=== PATIENT | female | born 1950 | race Caucasian/White ===

== ENCOUNTER → 2016-11-18 | Outpatient (CLI) | payer MEDICARE, OTHER ==
[~2016-11-18] MED LIST: CALC600T4 PO; CELE200C PO; MULT-245 PO
[2016-11-18 14:15] LABS: BASO # 0.1 x10^3/uL (0.0-0.2); BASO % 1 % (0-3); EOS % 2 % (0-3); HEMOGLOBIN 14.3 g/dL (12.0-15.5); LYMPH # 2.1 x10^3/uL (1.0-4.8); LYMPH % 33 % (24-48); MEAN CORPUSCULAR HEMOGLOBIN 29 pg (25-35); MEAN CORPUSCULAR HGB CONC 35 g/dL (31-37); MEAN CORPUSCULAR VOLUME 82 fL (79-100); MONO % 8 % (0-9); NEUT % 57 % (31-73); PLATELET COUNT 262 x10^3/uL (140-400); RED BLOOD COUNT 4.98 x10^6/uL (3.50-5.40); RED CELL DISTRIBUTION WIDTH 14.1 % (11.5-14.5); WHITE BLOOD COUNT 6.6 x10^3/uL (4.0-11.0)
[2016-11-18 14:17] LABS: BILIRUBIN,URINE NEGATIVE (NEG); GLUCOSE,URINE NEGATIVE (NEG); NITRITE,URINE NEGATIVE (NEG); PH,URINE 6.5; PROTEIN,URINE NEGATIVE (NEG-TRACE); UROBILINOGEN,URINE 0.2 mg/dL (0.2 mg/dL)
[2016-11-18 14:24] LABS: BACTERIA,URINE FEW /HPF (0-FEW); RBC,URINE 0 /HPF (0-2); SQUAMOUS EPITHELIAL CELL,UR FEW /LPF
[2016-11-18 14:25] LABS: INR 1.1 (0.8-1.1); PROTHROMBIN TIME PATIENT 13.3 SEC (11.7-14.0)
--- NOTE | 2016-11-18 14:30 | EKG ---
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
[2016-11-18 14:47] LABS: CREATININE 0.8 mg/dL (0.6-1.0); GFR 71.8; POTASSIUM 3.8 mmol/L (3.5-5.1)
--- NOTE | 2016-11-18 15:20 | RAD ---
Indication preop. Anticipated orthopedic surgery targeted to the shoulder. Frontal and lateral views of the chest were obtained. No prior imaging of the chest is available. Heart size is at the upper limits of normal. There is no gross congestive heart failure. There is no focal infiltrate. There is no pleural fluid or pneumothorax. Postoperative changes are seen associated with the right shoulder. There are slight degenerative changes in the thoracic spine. IMPRESSION: No acute or focal process. Heart size at the upper limits of normal
== END | disposition home or self-care (01) ==
LOC: SURGPAT 13:31
PROVIDERS: ATTEND Orthopaedic Surgery
DX: Z01.818 Encounter for other preprocedural examination (principal); R07.9 Chest pain, unspecified
CPT/HCPCS: 36415; 71020; 80048; 81001; 85027; 85610; 85651; 85730; 87086; 87641; 93005

== ENCOUNTER 2016-11-25 05:58 | Inpatient (IN) | payer MEDICARE, OTHER ==
[2016-11-25] VITALS (9 sets, daily range): BP systolic 121–135; BP diastolic 54–78
[~2016-11-25] VITALS: Ht 167.6 cm; Wt 142.9 kg
[2016-11-25] MEDS ORDERED: CELECOXIB 200 MG CAPSULE. PO PRN (06:00)
[2016-11-25] MEDS ORDERED: ACETAMINOPHEN 500 MG TABLET PO PRN (06:00)
[2016-11-25] MEDS ORDERED: TRANEXAMIC ACID 1,000 MG in IV NS 50ML -- 1ST BAG INJ ONE (06:00)
[2016-11-25] MEDS ORDERED: BUPIVACAINE MPF 0.5% 30 ML VIAL. ONE (06:52)
[2016-11-25] MEDS ORDERED: LIDOCAINE 1% 1 ML SYRINGE. ID PRN (07:00)
[2016-11-25] MEDS ORDERED: IV RINGERS,LACTATED 1000ML 1,000 ML IV SCH (07:00)
[2016-11-25] MEDS ORDERED: PROCHLORPERAZINE 10 MG/2 ML VIAL. IV PRN (07:00)
[2016-11-25] MEDS ORDERED: fentaNYL PF VIAL 100 MCG/2 ML VIAL IV PRN (07:00)
[2016-11-25] MEDS ORDERED: ONDANSETRON PF 4 MG/2 ML VIAL. IV PRN (07:00)
[2016-11-25 07:02] LABS: BILIRUBIN,URINE NEGATIVE (NEG); GLUCOSE,URINE NEGATIVE (NEG); NITRITE,URINE NEGATIVE (NEG); PROTEIN,URINE NEGATIVE (NEG-TRACE); UROBILINOGEN,URINE 0.2 mg/dL (0.2 mg/dL)
[2016-11-25 07:11] LABS: BACTERIA,URINE 0 /HPF (0-FEW); RBC,URINE 0 /HPF (0-2); SQUAMOUS EPITHELIAL CELL,UR FEW /LPF
[2016-11-25] MEDS ORDERED: ROCURONIUM 50 MG/5 ML VIAL. ONE (07:11)
[2016-11-25] MEDS ORDERED: fentaNYL PF VIAL 100 MCG/2 ML VIAL ONE ×3 (07:11→11:31)
[2016-11-25] MEDS ORDERED: DEXAMETHASONE SOD PHOS 20 MG/5 ML VIAL. ONE (07:11)
[2016-11-25] MEDS ORDERED: PROPOFOL 20 ML IV ONE (07:12)
[2016-11-25] MEDS ORDERED: LIDOCAINE 2% PF Vial for OR 5 ML VIAL. ONE (07:12)
[2016-11-25] MEDS ORDERED: ONDANSETRON PF 4 MG/2 ML VIAL. ONE ×2 (07:12→08:06)
[2016-11-25] MEDS ORDERED: FAMOTIDINE 20 MG/2 ML VIAL ONE (07:12)
[2016-11-25] MEDS ORDERED: MIDAZOLAM HCL/PF 2 MG/2 ML VIAL. ONE (07:16)
[2016-11-25] MEDS ORDERED: EPINEPHrine VIAL 30 MG/30 ML VIAL ONE (07:40)
[2016-11-25] MEDS ORDERED: MORPHINE SULFATE 10 MG/ML VIAL. ONE (07:58)
[2016-11-25] MEDS ORDERED: HYDROmorphone 2 MG/ML VIAL ONE ×2 (08:00→11:41)
[2016-11-25] MEDS ORDERED: TRANEXAMIC ACID 1,000 MG in IV NS 50ML -- 2ND BAG INJ ONE (08:00)
[2016-11-25] MEDS ORDERED: SEVOFLURANE > 120 MINUTES. IH ONE (08:04)
[2016-11-25] MEDS ORDERED: PHENYLEPHRINE 10 MG/ML VIAL. ONE (08:06)
[2016-11-25] MEDS ORDERED: NEOSTIGMINE 10 MG/10 ML VIAL. ONE (08:06)
[2016-11-25] MEDS ORDERED: GLYCOPYRROLATE 1 MG/5 ML VIAL. ONE (08:07)
--- NOTE | 2016-11-25 08:30 | HP ---
ADMIT DATE: 11/25/2016 CHIEF COMPLAINT: Left shoulder pain and weakness. HISTORY OF PRESENT ILLNESS: The patient is a 66-year-old female with a tear of her rotator cuff, perhaps onset with some workout classes that she was participating and may be about 6-7 months ago. She is very limited in her activities of daily living at present as the shoulder hurts trying to lift over head away from her body. She has to frequently lift it up with her other arm. She is well known to me from a knee replacement, otherwise doing well. PAST MEDICAL HISTORY: Significant for reflux disease, obesity, sleep apnea for which she uses CPAP, arthritis. PAST SURGICAL HISTORY: Significant for cataracts, carpal tunnel release, cholecystectomy, hysterectomy, bilateral total knee arthroplasties in 2009 and 2010, previous rotator cuff repair on the right by me in 2003, tonsillectomy. MEDICATIONS: List is reviewed. ALLERGIES: INCLUDE SHELLFISH, CODEINE, VANCOMYCIN. IMMUNIZATIONS: Up-to-date. FAMILY HISTORY: Noncontributory. 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 Additional social history; denies smoking, alcohol or drug use. REVIEW OF SYSTEMS: She had a recent urinary tract infection that cultured out enterococcus. She was placed on ciprofloxacin for a total about 5-day course ending today, no current symptoms. She states that other issues. Denies any chest pain, shortness of breath, fever, chills, constitutional symptoms or neurologic issues. She says, however, that she is a little hard to wake up after surgery and usually her bladder goes asleep after one of her last knee surgeries. She had to be straight catheterized 3 times before it started to work, that was solved by placing a Rivas for a day previously, which we plan to do at this time. PHYSICAL EXAMINATION: GENERAL: Pleasant, cooperative 66-year-old female, alert and oriented, in no acute distress. HEART: Regular rate and rhythm. LUNGS: Clear to auscultation bilaterally. ABDOMEN: Benign. EXTREMITIES: Examination of the left shoulder reveals pseudoparalysis. No apprehension or instability. Rotator cuff is very weak in all planes. IMAGING: MRI shows a retracted massive rotator cuff tear, left shoulder. IMPRESSION: Left shoulder massive rotator cuff tear with pseudoparalysis suggestive of rotator cuff arthropathy. TREATMENT PLAN: I told her that with the large rotator cuff tear present in the presence of the so-called pseudoparalysis, typically rotator cuff repair is not going to be a reasonable option and I did request as a backup procedure reverse total shoulder arthroplasty and went over with her previously the risks, benefits, postoperative course of both including possibility of nonhealing of the rotator cuff repair, the general protection base of rotator cuff repair for the first several weeks, which is not necessarily present for rotator cuff for a reverse shoulder arthroplasty for which the major issue would be a potential instability with some restrictions for the first couple of months. Extensive rehabilitation would be necessary for either and both carry risks of nerve or blood vessel damage, infection, medical or other anesthetic complications among others. All her questions were answered. Consent was obtained and she agrees to proceed with operative evaluation and treatment, which will plan joint center admission at least overnight in either case. ROMEL SCHMIDT MD DR: ROB/michael JOB#: [id number] / [id number] Js Balderrama
[2016-11-25] MEDS ORDERED: PROCHLORPERAZINE 10 MG/2 ML VIAL. ONE (10:48)
[2016-11-25] MEDS: fentaNYL PF VIAL 100 MCG/2 ML VIAL IV PRN ×3 (11:22→11:40)
--- NOTE | 2016-11-25 11:34 | PDOC4 ---
Operative Note Operative Note Date of operation: 11/25/2016 Preoperative diagnosis, left rotator cuff tear Postoperative diagnosis: Retracted rotator cuff tear and biceps fraying and impingement Operative procedure: Left shoulder arthroscopy arthroscopic rotator cuff repair biceps tenodesis and decompression Surgeon: Dyana Sebastian Anesthesia: Gen. endotracheal plus scalene block Estimated blood loss less than 10 mL Complications: None Operative indications: Patient is a 66-year-old female well known to me from a rotator cuff repair about 13 years ago bilateral total knee arthroplasties which have done very well but now had the sudden onset of left shoulder pain unresponsive to nonoperative management she had significant weakness essentially some findings of pseudoparalysis and given the significant involvement of the rotator cuff tear with retraction I did go over with her the possibility of rotator cuff repair and the risks and benefits of that approach versus if the cuff is found to be irreparable or other problems would preclude a repair a reverse total shoulder arthroplasty would give her function in the absence of a functioning rotator cuff. I had gone over with her the risks benefits postoperative course of each and the protection needed for the rotator cuff approach which she is certainly familiar with in addition to the possibility of medical or other anesthetic consultations infection nerve or blood vessel damage failed repair continued pain among others all her questions were answered consent was obtained she agrees to proceed with operative evaluation and treatment. Operative text: Patient was identified procedure verified and after pre- existing scalene block was obtained an adequate amounts of general endotracheal anesthesia were administered she was placed in the beachchair position with the Tmax head rest in the spider arm morel. The left shoulder was then prepped and draped in standard sterile fashion after checking that she had full range of motion with no instability. After timeout was performed patient procedure identified and verified a standard posterior portal was established in the shoulder joint entered without difficulty. She was noted to have a large retracted supraspinatus tear and significant biceps fraying subacromial space was entered and bursal tissue was cleared for visualization it appeared that the rotator cuff was able to be mobilized adequately to attempt a repair and bicipital tenodesis. Biceps tendon was tagged and cut at its base significant superior labral debridement was carried out back to stable tissue capsule ligament structures were noted to be in good condition as was the glenohumeral joint. Subacromial decompression was carried out to convert the type 2+ acromion to a type I using cutting block technique with an arthroscopic bur bleeding points were controlled by electrocautery and the rotator cuff footprint was prepared with an arthroscopic bur. A total of 2 medial row Gila coil anchors were placed and sutures were passed in mattress fashion excellent apposition of the rotator cuff was accomplished by using sliding locking knots backed up by alternating post-half hitches and additional traction suture was likewise accompanied in the biceps tendon for additional fixation and lateral row repair along with biceps tenodesis were accomplished with a total of 2 multi fix S anchors placed laterally. Excellent watertight repair was confirmed in all degrees of internal/external rotation as well as the integrity of the biceps tenodesis. The joint was drained of arthroscopic fluid portals closed with nylon suture sterile dressings were applied followed by a immobilizer to the left shoulder. Patient was extirpated transferred to postop holding in stable condition having tolerated the procedure well a Rivas catheter was placed prior to her leaving the operating room as well ROMEL SCHMIDT MD Nov 25, 2016 11:34
[2016-11-25] MEDS ORDERED: traMADol 50 MG TABLET PO PRN ×2 (11:45)
[2016-11-25] MEDS ORDERED: PROCHLORPERAZINE 5 MG TABLET. PO PRN (11:45)
[2016-11-25] MEDS ORDERED: 0.9 % SODIUM CHLORIDE 10 ML DISP.SYRIN. IV PRN (11:45)
[2016-11-25] MEDS ORDERED: oxyCODONE/APAP 5/325 1 TAB TABLET PO PRN (11:45)
[2016-11-25] MEDS ORDERED: HYDROmorphone 2 MG/ML VIAL IV PRN ×3 (11:45)
[2016-11-25] MEDS ORDERED: MORPHINE SULFATE 2 MG/ML DISP.SYRIN. IV PRN (11:45)
[2016-11-25] MEDS ORDERED: DEXTROSE 50% 25 GM / 50ML DISP.SYRIN. IV PRN (11:45)
[2016-11-25] MEDS ORDERED: ZOLPIDEM 5 MG TABLET. PO PRN (11:45)
[2016-11-25] MEDS ORDERED: oxyCODONE/APAP 7.5/325 1 TAB TABLET PO PRN (11:45)
[2016-11-25] MEDS ORDERED: ACETAMINOPHEN 325 MG TABLET. PO PRN (11:45)
[2016-11-25] MEDS ORDERED: CALCIUM CARBONATE 500 MG TAB.CHEW PO PRN (11:45)
[2016-11-25] MEDS: IV DEXTROSE 5 %-0.45 % NACL 1,000 ML IV SCH ×2 (12:32→21:34)
[2016-11-25] MEDS: HYDROcodone/APAP 10/325 1 TAB TABLET PO PRN (14:33)
[2016-11-25] MEDS: FERROUS SULFATE 325 MG TABLET. PO SCH (17:26)
[2016-11-25] MEDS: HYDROcodone/APAP 7.5/325MG 1 TAB TABLET PO PRN ×2 (17:28→23:20)
[2016-11-25] MEDS: CELECOXIB 200 MG CAPSULE. PO SCH (21:24)
--- NOTE | 2016-11-26 00:52 | ACF ---
Admission Forms Criteria MUSCULOSKELETAL DISEASE GRG Clinical Indications for Admission to Inpatient Care (Place 'X' for any and all applicable criteria): Hospital admission is needed for appropriate care of the patient because of 1 or more of the following: [X]I. Fracture, dislocation, or other musculoskeletal injury requiring inpatient care(medical) as indicated by 1 or more of the following(4)(5)(6)(7) [ ]a) Vertebral fracture requiring observation for instability or neurologic compromise (8) [ ]b) Compartment syndrome (proven or cannot be ruled out during observation level of care) (9) [ ]c) Limb-threatening injury [ ]d) Major injury requiring inpatient stabilization such as traction initiation or external fixation before internal fixation or closure of complex or open fracture [ ]e) Major injury requiring inpatient treatment after emergency or observation level care (as appropriate) [X]f) Severe pain requiring acute inpatient management [ ]g) Injury with suspicion of abuse or neglect (eg., child, dependent elderly) [ ]II. Newly diagnosed or suspected bone, joint, or orthopedic device infection (e.g., osteomyelitis, septic arthritis) needing 1 or more of the following(1)(2)(3) [ ]a) IV antibiotics that cannot be initiated in other than inpatient setting (e.g., patient too unstable or home infusion not available) [ ]b) Device removal or replacement [ ]c) Bone or soft tissue debridement [ ]d) Joint drainage (drain placement or repetitive aspirations) [ ]III. Severe rheumatologic disease (e.g., systemic lupus erythematosus, rheumatoid arthritis) with complications or comorbidities (Also use Optimal Recovery Care Criteria or General Recovery Criteria as appropriate on the basis of predominant condition), including 1 or more of the following( 10)(11)(12)(13) [ ]a) Severe infection (e.g., MYSQL DBA infection, sepsis) (14) [ ]b) Respiratory complications, including 1 or more of the following : [ ]i) Pleural effusion with respiratory compromise [ ]ii) Pulmonary hypertension with congestive failure [ ]iii) Respiratory failure [ ]iv) Pulmonary hemorrhage (15) [ ]c) Hematologic disease, including 1 or more of the following: [ ]i) Coagulopathy with bleeding [ ]ii) Thrombosis with hypercoagulable state [ ]iii) Thrombotic thrombocytopenic purpura [ ]d) Cerebritis with seizures, psychosis, or other severe abnormalities [ ]e) Vertebral destruction with monitoring needed for cervical myelopathy& possible respiratory compromise [ ]f) Exacerbation that requires inpatient treatment (e.g., intravenous immunosuppression) (16) [ ]g) Acute renal failure [ ]h) Cerebritis with seizures, psychosis, Altered mental status, or other neurologic abnormalities [ ]i) Pericardial effusion with tamponade [ ]j) Vertebral destruction, with monitoring needed for cervical myelopathy and possible respiratory compromise [ ]IV. Severe vasculitis with complications or comorbidities (Also use Optimal Recovery Care Criteria General Recovery Criteria as appropriate on the basis of predominant condition), including 1 or more of the following(11)(12)(17)(18)(19)(20) [ ]a) Exacerbation that requires inpatient treatment (e.g., intravenous immunosuppression) (19)(21) [ ]b) Pulmonary hemorrhage (15) [ ]c) MYSQL DBA vasculitis with seizures, psychosis, Altered mental status that is severe or persistent, or other severe abnormalities (22) [ ]d) Cerebral infarction [ ]e) Gastrointestinal ischemia [ ]f) Gangrene or threatened amputation [ ]g) Renal failure (16) [ ]h) Other significant complications of vasculitis ( eg., tissue or organ ischemia, organ dysfunction ) [ ]V. Severe myopathy as indicated by 1 or more of the following (28)(29) [ ]a) New onset of airway compromise or inability to swallow [ ]b) Respiratory deterioration with observation needed for impending respiratory failure [ ]c) Exacerbation that requires inpatient treatment (e.g., intravenous immunosuppression) [ ]. Severe crystal gout (arthropathy) indicated by 1 or more of the following (23)(24) [ ]a) Severe pain requiring acute inpatient management [ ]b) Exacerbation that requires inpatient treatment (e.g., intravenous treatment) [ ]VII.Rhabdomyolysis and 1 or more of the following (25)(26)(27) [ ]a) Acute renal failure [ ]b) Need for intravenous hydration after emergency or observation level care (as appropriate) [ ]c) Inability to maintain oral hydration [ ]d) Change in mental status [ ]e) Electrolyte abnormality that remains after emergency or observation level care (as appropriate) [ ]VIII Post amputation complication, as indicated by ANY ONE of the following [ ]a) Infection [ ]b) Dehiscence [ ]c) Myodesis failure [ ]IX. Severe pain requiring acute inpatient management due to musculoskeletal condition [ ]X. Musculoskeletal Disease and ALL of the following: [ ]a) Symptom or finding for which emergency and observation care have failed or are not considered appropriate (Use General Criteria: Observation Care as appropriate) [ ]b) Presence of ANY ONE of the following [ ]i) A General Admission Criteria [ ]ii) A Pediatric General Admission Criteria The original [facility] content created by [facility] has been revised. The portions of the content which have been revised are identified through the use of italic text or in bold, and [facility] has neither reviewed nor approved the modified material. All other unmodified content is copyright [facility]. Please see references footnoted in the original [facility] edition 2016 Admission Criteria Met?: Yes PREET SPENCER Nov 26, 2016 00:52
[2016-11-26] MEDS: HYDROcodone/APAP 10/325 1 TAB TABLET PO PRN (02:24)
[2016-11-26 03:00] VITALS: BP 137/59
[2016-11-26] MEDS ORDERED: MAGNESIUM HYDROXIDE 2,400 MG/30 ML ORAL.SUSP. PO PRN (06:00)
[2016-11-26 06:45] VITALS: BP 138/60
[2016-11-26] MEDS: HYDROcodone/APAP 7.5/325MG 1 TAB TABLET PO PRN ×3 (08:21→17:30)
[2016-11-26] MEDS: FERROUS SULFATE 325 MG TABLET. PO SCH ×2 (08:21→17:16)
[2016-11-26] MEDS: CELECOXIB 200 MG CAPSULE. PO SCH (08:21)
[2016-11-26] MEDS ORDERED: NON FORMULARY ITEM (Multivitamin (Multi Vitamin Daily) 1 EACH) PO SCH (09:00)
[2016-11-26] MEDS ORDERED: CELECOXIB 200 MG CAPSULE. PO SCH (09:00)
[2016-11-26] MEDS ORDERED: SENNOSIDES/DOCUSATE 8.6/50MG TABLET. PO SCH (09:00)
[2016-11-26] MEDS ORDERED: MULTIVITAMIN with MINERAL TABLET. PO SCH (09:00)
[2016-11-26 15:00] VITALS: BP 157/60
[2016-11-26] MEDS ORDERED: BISACODYL 10 MG SUPP.RECT. PR PRN (16:00)
[2016-11-26] MEDS ORDERED: FLUC150T PO (17:21)
[2016-11-26] MEDS ORDERED: OXYC-327 PO (17:21)
--- NOTE | 2016-11-26 18:14 | DS ---
DATE OF DISCHARGE: 11/26/2016 PRINCIPAL DIAGNOSIS: Left rotator cuff tear. OPERATIVE PROCEDURES: Left rotator cuff repair, biceps tenodesis and subacromial decompression. DISCHARGE MEDICATIONS: Include Percocet 7.5/325 one p.o. q. 4 hours p.r.n. pain, dispense #90, resume preoperative medications. DISCHARGE INSTRUCTIONS: Follow up with physical therapy, passive range of motion of left arm only twice a week for the next 5 weeks. Follow up with Dr. Mike in approximately 2 weeks, wear immobilizer at night, may remove during the day for pendulum exercises and gentle passive range of motion, may remove dressings in 2 days and may shower. BRIEF DESCRIPTION OF HOSPITAL COURSE: The patient went overnight admission for a large rotator cuff repair due to her issues with urinary retention and sleep apnea. Oxygen saturation resolved well postoperatively and she was able to urinate on her own. I did some physical therapy postoperatively as well. Pain was well controlled and she was discharged home in stable condition. ROMEL MIKE MD DR: ROB/michael JOB#: [id number] / [id number] SHARIF Garcia MD
== END 2016-11-26 17:45 | disposition home or self-care (01) | DRG 501 ==
LOC: OPSVCIP 05:58 → 4 SOUTHEST 12:20
PROVIDERS: ADMIT Orthopaedic Surgery; ATTEND Orthopaedic Surgery
PROC: 0LS44ZZ Reposition Left Upper Arm Tendon, Percutaneous Endoscopic Approach (ICD-10-PCS; 2016-11-25)
PROC: 0RNK4ZZ Release Left Shoulder Joint, Percutaneous Endoscopic Approach (ICD-10-PCS; 2016-11-25)
PROC: 0RHK44Z Insertion of Internal Fixation Device into Left Shoulder Joint, Percutaneous Endoscopic Approach (ICD-10-PCS; 2016-11-25)
PROC: 0LQ24ZZ Repair Left Shoulder Tendon, Percutaneous Endoscopic Approach (ICD-10-PCS; principal; 2016-11-25 07:30)
DX: M75.102 Unspecified rotator cuff tear or rupture of left shoulder, not specified as traumatic (principal); Z68.43 Body mass index [BMI] 50.0-59.9, adult; G47.30 Sleep apnea, unspecified; M19.90 Unspecified osteoarthritis, unspecified site; H26.9 Unspecified cataract; K21.9 Gastro-esophageal reflux disease without esophagitis; Z96.653 Presence of artificial knee joint, bilateral; Z90.710 Acquired absence of both cervix and uterus; Z90.49 Acquired absence of other specified parts of digestive tract; Z88.8 Allergy status to other drugs, medicaments and biological substances; Z91.013 Allergy to seafood; Z88.6 Allergy status to analgesic agent; E66.9 Obesity, unspecified
CPT/HCPCS: 36415; 81001; 82040; 86850; 86900; 86901; 87086; C1713; J0171; J0690; J1100; J2250; J2270; J2405; J2704; J2710; J3010; J3490; J7120; S0028; 97110; 97116; 97530; C1769; J2001

== ENCOUNTER 2017-01-25 09:36 | Inpatient (IN) | payer MEDICARE, OTHER ==
[~2017-01-25] VITALS: Ht 168.9 cm; Wt 140.6 kg
[~2017-01-25 09:36] MED LIST changes: +FLUC150T PO; +OXYC-327 PO
--- NOTE | 2017-01-25 09:39 | PHYS DOC ---
Adult General Chief Complaint Chief Complaint: SHOULDER INJURY HPI HPI Patient is a 66 year old female who presents with acute left shoulder pain. She states she had rotator cuff repair in November [address] Mike. She been doing physical therapy and doing well about a week ago she started having some pain in her anterior shoulder and it hurt when she was doing fine the back exercises so a physical therapy days did not do these exercises for the last few days. This morning she was trying to put her shirt on and had her hands above her head she heard 2 pops in her left shoulder in severe pain. She was able to get her arm back down but it hurt extremely bad. She presents to ER with uncontrolled pain in her left shoulder. She tried to use her sling and cannot get, with this. She has complete sensation intact without any numbness and hurts any time she tries to move her wrists the pain shoots up into her elbow into her spotting she points to the anterior aspect of her left shoulder. She refuses to move her shoulder at all at this time secondary to severe pain. Review of Systems Review of Systems Constitutional: Denies fever or chills [] Eyes: Denies change in visual acuity, redness, or eye pain [] HENT: Denies nasal congestion or sore throat [] Respiratory: Denies cough or shortness of breath [] Cardiovascular: No additional information not addressed in HPI [] GI: Denies abdominal pain, nausea, vomiting, bloody stools or diarrhea [] : Denies dysuria or hematuria [] Musculoskeletal: Denies back pain, positive for left shoulder pain Integument: Denies rash or skin lesions [] Neurologic: Denies headache, focal weakness or sensory changes [] Endocrine: Denies polyuria or polydipsia [] Current Medications Current Medications Current Medications Medications (Trade) Dose Ordered Sig/Ana Laura Start Time Stop Time Status Last Admin Dose Admin Morphine Sulfate 2 mg PRN Q15MIN PRN 01/25/17 10:01/26/17 10:14 DC 01/25/17 14:19 2 MG Ondansetron HCl (Zofran) 4 mg 1X ONCE 01/25/17 10:15 01/25/17 10:19 DC 01/25/17 10:25 4 MG Allergies Allergies Physical Exam Physical Exam Constitutional: Well developed, well nourished, no acute distress, non-toxic appearance. [] HENT: Normocephalic, atraumatic, bilateral external ears normal, oropharynx moist, no oral exudates, nose normal. [] Eyes: PERRLA, EOMI, conjunctiva normal, no discharge. [] Neck: Normal range of motion, no tenderness, supple, no stridor. [] Cardiovascular:Heart rate regular rhythm, no murmur [] Lungs & Thorax: Bilateral breath sounds clear to auscultation [] Abdomen: Bowel sounds normal, soft, no tenderness, no masses, no pulsatile masses. [] Skin: Warm, dry, no erythema, no rash. [] Back: No tenderness, no CVA tenderness. [] Extremities: Tender palpation without any obvious deformities noted in the left superior anterior shoulder, sensation intact to light touch over median ulnar and radial nerve distributions able to abduct and adduct fingers in addition to flex and extend fingers, able to flex and extend at the wrist, radial ulnar pulses 2+ in the left upper extremities, no cyanosis, no clubbing, no edema. [ ] Neurologic: Alert and oriented X 3, normal motor function, normal sensory function, no focal deficits noted. [] Psychologic: Affect normal, judgement normal, mood normal. [] Current Patient Data Vital Signs Vital Signs Date Time Temp Pulse Resp B/P (MAP) Pulse Ox O2 Delivery O2 Flow Rate FiO2 01/25/17 11:00 80 16 143/81 (101) 99 01/25/17 10:44 Room Air 01/25/17 09:55 97.9 97.9 EKG EKG [] Radiology/Procedures Radiology/Procedures [facility] [address] [place], [place] [id number] IMAGING REPORT Signed PATIENT: ISRRAEL JONES ACCOUNT: [id number] : 1950 LOCATION: ER AGE: 66 SEX: F EXAM STATUS: REG ER ORD. PHYSICIAN: MIKE GHOTRA MD REASON: pain PROCEDURE: SHOULDER 2+V LEFT Two-view left shoulder study History: Left shoulder pain. Patient had rotator cuff surgery 2 months ago. Findings: No acute fracture or dislocation or osteolytic process is evident. No AC joint separation is seen. IMPRESSION: No acute fracture. DICTATED and SIGNED BY: LAINE SIBLEY MD DATE: 01/25/17 1052 CC: SHARIF PEÑA; MIKE GHOTRA MD ~ Impressions: Left shoulder pain Course & Med Decision Making Course & Med Decision Making Pertinent Labs and Imaging studies reviewed. (See chart for details) Patient's x-ray doesn't show anything acute. Spoke with Dr. Mike who once an MRI of the left shoulder. Patient is being admitted to the hospitalist for pain control, I have ordered an MRI. She is agreeable plans in stable condition at this time. Dragon Disclaimer Dragon Disclaimer This electronic medical record was generated, in whole or in part, using a voice recognition dictation system. Departure Departure Impression: Primary Impression: Shoulder pain, left Disposition: 09 ADMITTED INPATIENT Admitting Physician: Gemma Nunez Condition: STABLE Referrals: SHARIF PEÑA (PCP) MIKE GHOTRA MD Jan 25, 2017 09:39
[2017-01-25] MEDS ORDERED: ONDANSETRON PF 4 MG/2 ML VIAL. IV ONE (10:15)
[2017-01-25] MEDS: MORPHINE SULFATE 2 MG/ML DISP.SYRIN. IV/SQ PRN ×4 (10:26→14:19)
--- NOTE | 2017-01-25 10:54 | RAD ---
Two-view left shoulder study History: Left shoulder pain. Patient had rotator cuff surgery 2 months ago. Findings: No acute fracture or dislocation or osteolytic process is evident. No AC joint separation is seen. IMPRESSION: No acute fracture.
[2017-01-25 14:30] VITALS: BP 121/66
[2017-01-25 15:00] VITALS: BP 121/66
[2017-01-25] MEDS: MORPHINE SULFATE 2 MG/ML DISP.SYRIN. IV PRN ×2 (15:52→17:57)
[2017-01-25] MEDS ORDERED: CELECOXIB 200 MG CAPSULE. PO SCH (16:00)
--- NOTE | 2017-01-25 16:56 | RAD ---
MRI study of the left shoulder without contrast Clinical indications: Left shoulder pain after twisting injury today. The patient felt a pop and is unable to move shoulder. History of rotator cuff repair 2 months ago. TECHNIQUE: Noncontrast MRI sequences of the left shoulder were performed in all 3 planes. COMPARISON: Radiographic study of the left shoulder dated January 25, 2017. FINDINGS: Paramagnetic susceptibility artifact of the proximal left humerus is seen related to a rotator cuff repair. There is a full-thickness tear of the lateral aspect of the supraspinatus attachment to the greater tubercle. The tendon is slightly retracted. The defect measures 14 mm transversely and 15 mm in AP dimension. There is a screw present anterior to the proximal humerus. This could represent a displaced screw. Fluid is seen within the subdeltoid and subacromial bursa as a result of the complete tear. The intra-articular portion of the tendon of the long of the biceps is not identified and may be torn. There is increased signal of this tendon within the bicipital groove consistent with a longitudinal split tear of this tendon within the bicipital groove. The subscapularis tendon is intact. Postoperative changes of the proximal left humerus are seen. No other marrow signal abnormality is seen. No fracture is evident. Fluid distention of the AC joint is seen. There is mild primary degenerative osteoarthritis of the AC joint. There is a moderate-sized glenohumeral joint effusion. There is degenerative signal abnormality of the superior and posterior aspects of the glenoid labrum. There is a small degenerative tear of the posterior superior aspect of the glenoid labrum. This is seen on image 12 and series 4. No spinoglenoid notch ganglion cyst is seen. IMPRESSION: Postoperative changes of the proximal left humerus related to recent rotator cuff repair surgery. There is a complete tear of the supraspinatus tendon at the attachment to the footplate with mild retraction of the tendon. There are tears of the tendon of the long head of the biceps. Degenerative signal abnormality of the superior and posterior aspects of the glenoid labrum. Small degenerative tear of the posterior superior aspect of the glenoid labrum. Electronically signed by: Adam Abdul MD (01/25/2017 4:52 PM) [id number]
[2017-01-25] MEDS ORDERED: fentaNYL PF VIAL 100 MCG/2 ML VIAL IV PRN (17:45)
[2017-01-25] MEDS: CALCIUM CARB/VIT D3 500/200 TABLET. PO SCH (17:57)
--- NOTE | 2017-01-25 18:07 | PDOC1 ---
History and Physical Date of Admission Date of Admission DATE: 01/25/17 TIME: 18:01 Identification/Chief Complaint Chief Complaint pain left shoulder,acute unable to elevate Problems: Source Source: Caregiver, Chart review, Patient History of Present Illness History of Present Illness very pleasant 66 y.o female, heavy set who had rotator cuff repair 2 mos ago by our ortho group after she tore her rotator cuff after bearing weights as part of work out, HAs been attending OT 2x a week doing well until last week, more difficulty doing OT exercises.Today difficulty doing her own bra 10/10 in pain and has very good pain tolerance, only takes celebrex at home and cant lift above head hence admitted, Ortho aware, advised mRI and MRI shows: IMPRESSION: Postoperative changes of the proximal left humerus related to recent rotator cuff repair surgery. There is a complete tear of the supraspinatus tendon at the attachment to the footplate with mild retraction of the tendon. There are tears of the tendon of the long head of the biceps. Degenerative signal abnormality of the superior and posterior aspects of the glenoid labrum. Small degenerative tear of the posterior superior aspect of the glenoid labrum. 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 on left shoulder palp Past Medical History Cardiovascular: No pertinent hx Musculoskeletal: Osteoarthritis Past Surgical History Past Surgical History: Other (rotator cuff tear repair) Family History Family History: Hypertension Social History Smoke: No ALCOHOL: none Drugs: None Current Problem List Problem List Problems Medical Problems: (1) Shoulder pain, left Status: Acute Problems: Current Medications Current Medications Current Medications Morphine Sulfate 2 mg PRN Q15MIN PRN IV/SQ PAIN GREATER THAN 3/10 Last administered on 01/25/17 14:19; Start 01/25/17 at 10:15; Stop 01/26/17 at 10 :14 Ondansetron HCl (Zofran) 4 mg 1X ONCE IV Last administered on 01/25/17 10:25 ; Start 01/25/17 at 10:15; Stop 01/25/17 at 10:19; Status DC Lorazepam (Ativan) 1 mg 1X ONCE IV Last administered on 01/25/17 15:52; Start 01/25/17 at 12:45; Stop 01/25/17 at 12:46; Status DC Morphine Sulfate 2 mg PRN Q2HR PRN IV PAIN Last administered on 01/25/17t 15: 52; Start 01/25/17 at 15:30 Naproxen (Naprosyn) 500 mg BID PO ; Start 01/25/17 at 21:00; Stop 01/25/17 at 21:00; Status DC Celecoxib (CeleBREX) 200 mg DAILY PO ; Start 01/25/17 at 16:00; Stop 01/25/17 at 17:47; Status DC Oxycodone/ Acetaminophen (Percocet 7.5/ 325) 1 tab PRN Q4HRS PRN PO PAIN; Start 01/25/17 at 15:45 Calcium/Vitamin D (Oscal D 500mg/ 200uts) 1 tab BIDWMEALS PO ; Start 01/25/17 at 17:00 Multivitamins (Thera M Plus) 1 tab DAILY PO ; Start 01/26/17 at 09:00 Fentanyl Citrate (Fentanyl 2ml Vial) 50 mcg PRN Q2HR PRN IV PAIN; Start at 17:45 Active Scripts Active Reported Percocet 7.5-325 Mg Tablet (Oxycodone/Acetaminophen) 1 Each Tablet 1 Tab PO PRN Q4HRS PRN Celebrex (Celecoxib) 200 Mg Capsule 1 Cap PO DAILY Multi Vitamin Daily (Multivitamin) 1 Each Tablet 1 Each PO DAILY Calcium (Calcium Carbonate) 600 Mg Tablet 1,800 Mg PO DAILY Allergies Allergies: Coded Allergies: codeine (Verified Allergy, Intermediate, RED, ITCHY, 11/25/16) shellfish derived (Verified Allergy, Intermediate, N/V AND DIARRHEA, ) vancomycin (Verified Allergy, Intermediate, Hives, 11/25/16) ROS Review of System neg 14 pt, all is per HPI Physical Exam General: Alert, Oriented X3, Cooperative, No acute distress HEENT: Atraumatic, PERRLA, EOMI Lungs: Clear to auscultation, Normal air movement Heart: S1S2, RRR, no thrills, no rubs, no gallops, no murmurs Cardiovascular: S1, S2 Breasts: Normal, Rt breast nml w/o mass, Lt breast nml w/o mass, Nipples normal Abdomen: Normal bowel sounds, Soft, No tenderness, No hepatosplenomegaly, No masses Rectal Exam: not examined Extremities: Other (refer to above) Skin: No rashes, No breakdown, No significant lesion Neuro: Normal gait, Normal speech, Strength at 5/5 X4 ext, Normal tone, Sensation intact, Cranial nerves 3-12 NL, Reflexes 2+ Psych/Mental Status: Mental status NL, Mood NL Vitals Vitals Vital Signs Date Time Temp Pulse Resp B/P (MAP) Pulse Ox O2 Delivery O2 Flow Rate FiO2 01/25/17 16:14 Room Air 01/25/17 15:00 97.7 67 18 121/66 (84) 97 97.7 VTE Prophylaxis Ordered VTE Prophylaxis Devices: Yes VTE Pharmacological Prophylaxi: Yes Assessment/Plan Assessment/Plan 1. complete tear of the supraspinatus tendon at the attachment to the footplate with mild retraction of the tendon. 2, tears of the tendon of the long head of the biceps. 3. DJD left shoulder 4. Obesity Plan: admit NPO post MN IV pain meds Hold NSAids Ortho consult dw her and RN at bedside ROSITA DIAZ MD Jan 25, 2017 18:07
[2017-01-25 19:00] VITALS: BP 156/63
[2017-01-25] MEDS: diphenhydrAMINE HCL 25 MG CAPSULE PO PRN (20:38)
[2017-01-25] MEDS: oxyCODONE/APAP 7.5/325 1 TAB TABLET PO PRN (20:38)
[2017-01-25] MEDS ORDERED: NAPROXEN 500 MG TABLET PO SCH (21:00)
[2017-01-25 22:43] VITALS: BP 144/67
[2017-01-26] MEDS: MORPHINE SULFATE 2 MG/ML DISP.SYRIN. IV PRN ×2 (01:42→06:55)
[2017-01-26 03:00] VITALS: BP 126/52
[2017-01-26 07:00] VITALS: BP 149/62
[2017-01-26] MEDS: CALCIUM CARB/VIT D3 500/200 TABLET. PO SCH ×2 (08:00→17:45)
[2017-01-26] MEDS: MULTIVITAMIN with MINERAL TABLET. PO SCH (09:00)
[2017-01-26] MEDS ORDERED: FLU VACC QS2017-18 (36MOS+)/PF 0.5 ML SYRINGE. VAX IM ONE (09:00)
[2017-01-26] MEDS ORDERED: INFLUENZA VAX SCREEN BY RX. MC ONE (09:00)
[2017-01-26] MEDS ORDERED: MORPHINE SULFATE 4 MG/ML DISP.SYRIN. IV PRN (09:45)
[2017-01-26] MEDS ORDERED: SALIVA STIMULANT AGENT 44ML SPRAY BOTTLE. PO PRN (09:45)
[2017-01-26] MEDS ORDERED: IV DEXTROSE 5 %-0.45 % NACL 1,000 ML IV ONE (09:45)
--- NOTE | 2017-01-26 09:49 | PDOC ---
PROGRESS NOTES Chief Complaint Chief Complaint acute shoulder pain 1. complete tear of the supraspinatus tendon 2, tears of the tendon of the long head of the biceps. 3. DJD left shoulder 4. Obesity, morbid, BMI 49 History of Present Illness History of Present Illness NPO for possible surgery gentle iv fluid X1 liter increase pain meds biotene mouth care she feels unable to ambulate well due to pain Vitals Vitals Vital Signs Date Time Temp Pulse Resp B/P (MAP) Pulse Ox O2 Delivery O2 Flow Rate FiO2 01/26/17 08:17 Room Air 01/26/17 08:16 99 01/26/17 07:00 98.2 75 18 149/62 (91) 98.2 Physical Exam General: Alert, Oriented X3, Cooperative, No acute distress Heart: Regular rate, No murmurs Abdomen: Normal bowel sounds, Soft, No tenderness, No hepatosplenomegaly, No masses Extremities: Other (refer to above) Skin: No rashes, No breakdown, No significant lesion Review of Systems Review of Systems shoulder pain, dry mouth Assessment and Plan Assessmemt and Plan Problems Medical Problems: (1) Shoulder pain, left Status: Acute Problems: Comment Review of Relevant I have reviewed the following items liam (where applicable) has been applied. Medications Current Medications Morphine Sulfate 2 mg PRN Q15MIN PRN IV/SQ PAIN GREATER THAN 3/10 Last administered on 01/25/17 14:19; Start 01/25/17 at 10:15; Stop 01/26/17 at 10 :14 Ondansetron HCl (Zofran) 4 mg 1X ONCE IV Last administered on 01/25/17 10:25 ; Start 01/25/17 at 10:15; Stop 01/25/17 at 10:19; Status DC Lorazepam (Ativan) 1 mg 1X ONCE IV Last administered on 01/25/17 15:52; Start 01/25/17 at 12:45; Stop 01/25/17 at 12:46; Status DC Morphine Sulfate 2 mg PRN Q2HR PRN IV PAIN Last administered on 01/26/17 06: 55; Start 01/25/17 at 15:30 Naproxen (Naprosyn) 500 mg BID PO ; Start 01/25/17 at 21:00; Stop 01/25/17 at 21:00; Status DC Celecoxib (CeleBREX) 200 mg DAILY PO ; Start 01/25/17 at 16:00; Stop 01/25/17 at 17:47; Status DC Oxycodone/ Acetaminophen (Percocet 7.5/ 325) 1 tab PRN Q4HRS PRN PO PAIN Last administered on 01/25/17 20:38; Start 01/25/17 at 15:45 Calcium/Vitamin D (Oscal D 500mg/ 200uts) 1 tab BIDWMEALS PO Last administered on 01/25/17 17:57; Start 01/25/17 at 17:00 Multivitamins (Thera M Plus) 1 tab DAILY PO ; Start 01/26/17 at 09:00 Fentanyl Citrate (Fentanyl 2ml Vial) 50 mcg PRN Q2HR PRN IV PAIN; Start at 17:45 Diphenhydramine HCl (Benadryl) 25 mg PRN Q6HRS PRN PO ITCHING Last administered on 01/25/17 20:38; Start 01/25/17 at 18:00 Info (Do NOT chart on this placeholder) 1 each 1X ONCE MC ; Start 01/26/17 at 09:00; Stop 01/26/17 at 09:01; Status UNV Influenza Virus Vaccine Quadrival (Fluarix Quad 8860-8898 Syringe) 0.5 ml ONCE ONCE VAX IM ; Start 01/26/17 at 09:00; Stop 01/26/17 at 09:01; Status DC Active Scripts Active Reported Percocet 7.5-325 Mg Tablet (Oxycodone/Acetaminophen) 1 Each Tablet 1 Tab PO PRN Q4HRS PRN Celebrex (Celecoxib) 200 Mg Capsule 1 Cap PO DAILY Multi Vitamin Daily (Multivitamin) 1 Each Tablet 1 Each PO DAILY Calcium (Calcium Carbonate) 600 Mg Tablet 1,800 Mg PO DAILY Vitals/I & O Vital Sign - Last 24 Hours 01/25/17 01/25/17 01/25/17 01/25/17 09:55 10:26 10:30 10:44 Temp 97.9 97.9 Pulse 70 76 Resp 18 18 20 16 B/P (MAP) 170/77 (108) 161/74 (103) Pulse Ox 98 100 99 97 O2 Delivery Room Air Room Air Room Air Room Air 01/25/17 01/25/17 01/25/1717 11:00 11:30 11:53 12:00 Pulse 80 72 72 Resp 16 16 18 16 B/P (MAP) 143/81 (101) 141/69 (93) 133/93 (106) Pulse Ox 99 98 100 96 O2 Delivery Room Air Room Air 01/25/17 01/25/17 01/25/17 01/25/17 13:00 14:00 14:19 14:30 Temp 97.7 97.7 Pulse 70 70 67 Resp 20 16 18 18 B/P (MAP) 140/63 (88) 114/67 (83) 121/66 (84) Pulse Ox 96 95 95 97 O2 Delivery Room Air Room Air Room Air 01/25/17 01/25/17 01/25/17 01/25/17 15:00 16:14 19:00 20:05 Temp 97.7 98.3 97.7 98.3 Pulse 67 72 Resp 18 17 B/P (MAP) 121/66 (84) 156/63 (94) Pulse Ox 97 98 O2 Delivery Room Air Room Air Room Air Room Air 01/25/17 01/26/17 01/26/17 01/26/17 22:43 03:00 07:00 08:16 Temp 97.9 98.1 98.2 97.9 98.1 98.2 Pulse 74 70 75 Resp 16 16 18 B/P (MAP) 144/67 (92) 126/52 (76) 149/62 (91) Pulse Ox 98 96 99 99 O2 Delivery BiPAP/CPAP BiPAP/CPAP Room Air Room Air 01/26/17 08:17 O2 Delivery Room Air CHI SUERO MD Jan 26, 2017 09:48
[2017-01-26 11:00] VITALS: BP 141/53
[2017-01-26 15:00] VITALS: BP 136/69
[2017-01-26] MEDS: oxyCODONE/APAP 7.5/325 1 TAB TABLET PO PRN ×2 (15:27→23:47)
[2017-01-26] MEDS: diphenhydrAMINE HCL 25 MG CAPSULE PO PRN ×2 (17:45→23:47)
[2017-01-26 19:10] VITALS: BP 121/32
[2017-01-26 23:48] VITALS: BP 133/47
[2017-01-27] VITALS (10 sets, daily range): BP systolic 100–159; BP diastolic 32–90
[2017-01-27] MEDS ORDERED: LIDOCAINE 1% PF 2 ML VIAL. ID PRN (07:00)
[2017-01-27] MEDS ORDERED: fentaNYL PF VIAL 100 MCG/2 ML VIAL IV PRN ×2 (07:00)
[2017-01-27] MEDS ORDERED: ONDANSETRON PF 4 MG/2 ML VIAL. IV PRN (07:00)
[2017-01-27] MEDS ORDERED: PROCHLORPERAZINE 10 MG/2 ML VIAL. IV PRN (07:00)
[2017-01-27] MEDS ORDERED: IV RINGERS,LACTATED 1000ML 1,000 ML IV SCH (07:00)
[2017-01-27] MEDS: CALCIUM CARB/VIT D3 500/200 TABLET. PO SCH ×2 (08:00→17:00)
[2017-01-27] MEDS: MULTIVITAMIN with MINERAL TABLET. PO SCH (09:00)
--- NOTE | 2017-01-27 09:41 | CONS ---
DATE OF CONSULTATION: 01/26/2017 REQUESTING PHYSICIAN: Dr. Merritt from [facility] and Gemma Nunez M.D. REASON FOR CONSULTATION: Left shoulder pain. HISTORY OF PRESENT ILLNESS: The patient is a 66-year-old female familiar to me from a left shoulder arthroscopic rotator cuff repair done a little over 2 months ago. The patient was doing well, progressing well through physical therapy as directed and morning of her admission, was trying to put her shirt on, had her hands above her head and heard 2 pops in the left shoulder, had severe onset of shoulder pain and hurt a lot, bringing the arm down. She had difficulty lifting or moving the arm due to very severe pain and presented to the Emergency Department as the pain was really uncontrolled in the left shoulder even with the use of a sling. Pain is over the anterior aspect of the shoulder, generally radiates somewhat down to the elbow and she has to keep the arm at the side to get relief of her pain. PAST MEDICAL HISTORY: Significant only for arthritis. PAST SURGICAL HISTORY: Significant for rotator cuff repair on the left shoulder recently and approximately 10 years ago on the right, which is doing well. FAMILY HISTORY: Hypertension. SOCIAL HISTORY: Denies smoking, alcohol or drug use. REVIEW OF SYSTEMS: Significant for the left shoulder pain. Denies any chest pain, shortness of breath, numbness or tingling. She does have some radiation of pain from the left shoulder down to above the left elbow. Denies any neck or back injury, fever, weight gain or loss or recent injury. ALLERGIES: Include CODEINE, SHELLFISH and VANCOMYCIN. MEDICATIONS: List is reviewed. PHYSICAL EXAMINATION: GENERAL: This is a pleasant, cooperative 66-year-old female. EXTREMITIES: Examination of the left shoulder reveals extreme pain on any attempted range of motion. There is no apprehension instability. She has normal parascapular motion without winging. No skin tenderness over the acromioclavicular joint. She does have tenderness over the subacromial area and anterior shoulder biceps groove area. Well healed arthroscopic portals are present. She has normal examination of the contralateral right shoulder with remote well-healed arthroscopic portals, full active range of motion, normal alignment, motion and stability of bilateral elbows and wrists and overall intact motor function, distal pulses, sensation, reflexes, skin in both upper extremities throughout. RADIOLOGICAL DATA: X-rays of the left shoulder show well maintained glenohumeral joint and no bony abnormalities. MRI of the left shoulder shows a recurrent rotator cuff tear of the supraspinatus. IMPRESSION: Left shoulder recurrent rotator cuff tear. TREATMENT PLAN: I had gone over with her and her family treatment options. She certainly recalled before that as there was some doubt as far as the reparability of her rotator cuff at that time and we had even talked about previously the backup procedure of a reverse total shoulder arthroplasty if the cuff was not repairable. I pointed out to her that the most common reason for retear is while adhering to the regimen is really failure at the junction between the tissue and the sutures if the cuff does not otherwise heal due to vascularity, etc. While it would be possible to attempt another rotator cuff repair, I do not think that is really advisable based on the attempted repair and the results At this point, we did talk about a reverse total shoulder arthroplasty is a method to get her pain relief and function. We went through risks, benefits and postoperative course of that procedure including the possibility of instability, infection, nerve or blood vessel damage, medical or other anesthetic complications among others. All her questions were answered and she would like to proceed with a reverse total shoulder arthroplasty, which will be scheduled likely tomorrow. ROMEL SCHMIDT MD DR: ROB/michael JOB#: [id number] / [id number]
--- NOTE | 2017-01-27 11:32 | PDOC ---
PROGRESS NOTES Chief Complaint Chief Complaint acute shoulder pain 1. complete tear of the supraspinatus tendon 2, tears of the tendon of the long head of the biceps. 3. DJD left shoulder 4. Obesity, morbid, BMI 49 History of Present Illness History of Present Illness NPO for possible surgery gentle iv fluid X1 liter increase pain meds biotene mouth care pain better 3/10 Vitals Vitals Vital Signs Date Time Temp Pulse Resp B/P (MAP) Pulse Ox O2 Delivery O2 Flow Rate FiO2 01/27/17 11:03 98.7 79 18 159/90 (113) 96 BiPAP/CPAP 98.7 Physical Exam General: Alert, Oriented X3, Cooperative, No acute distress Heart: Regular rate, No murmurs Abdomen: Normal bowel sounds, Soft, No tenderness, No hepatosplenomegaly, No masses Extremities: No edema, Other (refer to above) Skin: No rashes, No breakdown, No significant lesion Assessment and Plan Assessmemt and Plan Problems Medical Problems: (1) Shoulder pain, left Status: Acute Problems: Comment Review of Relevant I have reviewed the following items liam (where applicable) has been applied. Medications Current Medications Morphine Sulfate 2 mg PRN Q15MIN PRN IV/SQ PAIN GREATER THAN 3/10 Last administered on 01/25/17 14:19; Start 01/25/17 at 10:15; Stop 01/26/17 at 10 :14; Status DC Ondansetron HCl (Zofran) 4 mg 1X ONCE IV Last administered on 01/25/17 10:25 ; Start 01/25/17 at 10:15; Stop 01/25/17 at 10:19; Status DC Lorazepam (Ativan) 1 mg 1X ONCE IV Last administered on 01/25/17 15:52; Start 01/25/17 at 12:45; Stop 01/25/17 at 12:46; Status DC Morphine Sulfate 2 mg PRN Q2HR PRN IV PAIN Last administered on 01/26/17 06: 55; Start 01/25/17 at 15:30; Stop 01/26/17 at 09:46; Status DC Naproxen (Naprosyn) 500 mg BID PO ; Start 01/25/17 at 21:00; Stop 01/25/17 at 21:00; Status DC Celecoxib (CeleBREX) 200 mg DAILY PO ; Start 01/25/17 at 16:00; Stop 01/25/17 at 17:47; Status DC Oxycodone/ Acetaminophen (Percocet 7.5/ 325) 1 tab PRN Q4HRS PRN PO PAIN Last administered on 01/26/17 23:47; Start 01/25/17 at 15:45 Calcium/Vitamin D (Oscal D 500mg/ 200uts) 1 tab BIDWMEALS PO Last administered on 01/26/17 17:45; Start 01/25/17 at 17:00 Multivitamins (Thera M Plus) 1 tab DAILY PO ; Start 01/26/17 at 09:00 Fentanyl Citrate (Fentanyl 2ml Vial) 50 mcg PRN Q2HR PRN IV PAIN; Start at 17:45 Diphenhydramine HCl (Benadryl) 25 mg PRN Q6HRS PRN PO ITCHING Last administered on 01/26/17 23:47; Start 01/25/17 at 18:00 Info (Do NOT chart on this placeholder) 1 each 1X ONCE MC ; Start 01/26/17 at 09:00; Stop 01/26/17 at 09:01; Status UNV Influenza Virus Vaccine Quadrival (Fluarix Quad [id number] Syringe) 0.5 ml ONCE ONCE VAX IM ; Start 01/26/17 at 09:00; Stop 01/26/17 at 09:01; Status DC Morphine Sulfate 4 mg PRN Q2HR PRN IV PAIN; Start 01/26/17 at 09:45 Saliva Substitute (Biotene Moisturizing Mouth) 2 spray PRN Q15MIN PRN PO DRY MOUTH; Start 01/26/17 at 09:45 Dextrose/Sodium Chloride 1,000 ml @ 100 mls/hr 1X ONCE IV Last administered on 01/26/17t 10:40; Start 01/26/17 at 09:45; Stop 01/26/17 at 19:44; Status DC Ondansetron HCl (Zofran) 4 mg PRN Q6HRS PRN IV NAUSEA/VOMITING; Start at 07:00; Stop 01/28/17 at 06:59 Fentanyl Citrate (Fentanyl 2ml Vial) 25 mcg PRN Q5MIN PRN IV MILD PAIN; Start 01/27/17 at 07:00; Stop 01/28/17 at 06:59 Fentanyl Citrate (Fentanyl 2ml Vial) 50 mcg PRN Q5MIN PRN IV MODERATE PAIN; Start 01/27/17 at 07:00; Stop 01/28/17 at 06:59 Ringer's Solution 1,000 ml @ 30 mls/hr Q24H IV ; Start 01/27/17 at 07:00; Stop 01/27/17 at 18:59 Lidocaine HCl (Xylocaine-Mpf 1% Vial) 2 ml PRN 1X PRN ID IV START; Start 01/27 at 07:00; Stop 01/28/17 at 06:59 Prochlorperazine Edisylate (Compazine) 5 mg PACU PRN PRN IV NAUSEA, MRX1; Start 01/27/17 at 07:00; Stop 01/28/17 at 06:59 Active Scripts Active Reported Percocet 7.5-325 Mg Tablet (Oxycodone/Acetaminophen) 1 Each Tablet 1 Tab PO PRN Q4HRS PRN Celebrex (Celecoxib) 200 Mg Capsule 1 Cap PO DAILY Multi Vitamin Daily (Multivitamin) 1 Each Tablet 1 Each PO DAILY Calcium (Calcium Carbonate) 600 Mg Tablet 1,800 Mg PO DAILY Vitals/I & O Vital Sign - Last 24 Hours 01/26/17 01/26/17 01/26/17 01/26/17 15:00 15:27 17:48 19:10 Temp 98.3 98.4 98.3 98.4 Pulse 77 81 Resp 18 16 B/P (MAP) 136/69 (91) 121/32 (61) Pulse Ox 96 99 99 94 O2 Delivery Room Air Room Air Room Air 01/26/17 01/26/17 01/26/17 01/27/17 20:05 23:47 23:48 00:47 Temp 97.9 97.9 Pulse 76 Resp 18 16 16 B/P (MAP) 133/47 (75) Pulse Ox 97 O2 Delivery Room Air Room Air Room Air BiPAP/CPAP 01/27/17 01/27/17 01/27/17 01/27/17 03:20 07:06 08:02 11:03 Temp 97.7 98.2 98.7 97.7 98.2 98.7 Pulse 77 80 79 Resp 16 17 18 B/P (MAP) 115/32 (59) 133/53 (79) 159/90 (113) Pulse Ox 92 91 96 O2 Delivery BiPAP/CPAP BiPAP/CPAP Room Air BiPAP/CPAP CHI SUERO MD Jan 27, 2017 11:32
[2017-01-27] MEDS ORDERED: ROPIVacaine 0.5% PF 30 ML VIAL. ONE (16:44)
[2017-01-27] MEDS ORDERED: MIDAZOLAM HCL/PF 2 MG/2 ML VIAL. ONE (16:45)
[2017-01-27] MEDS ORDERED: PROPOFOL 20 ML IV ONE (17:43)
[2017-01-27] MEDS ORDERED: LIDOCAINE 2% PF Vial for OR 5 ML VIAL. ONE (17:43)
[2017-01-27] MEDS ORDERED: DEXAMETHASONE SOD PHOS 20 MG/5 ML VIAL. ONE (17:44)
[2017-01-27] MEDS ORDERED: SEVOFLURANE > 120 MINUTES. IH ONE ×2 (17:44→21:03)
[2017-01-27] MEDS ORDERED: ONDANSETRON PF 4 MG/2 ML VIAL. ONE (17:44)
[2017-01-27] MEDS ORDERED: ROCURONIUM 100 MG/10 ML VIAL. ONE (17:45)
[2017-01-27] MEDS ORDERED: fentaNYL PF VIAL 100 MCG/2 ML VIAL ONE (17:45)
[2017-01-27] MEDS ORDERED: ceFAZolin 2GM PREMIX 2 GM/50 ML BAG IV ONE (18:21)
[2017-01-27] MEDS ORDERED: PHENYLEPHRINE in 0.9% NACL PF 1 MG/10 ML DISP.SYRIN. IV ONE (19:01)
[2017-01-27] MEDS ORDERED: GLYCOPYRROLATE 1 MG/5 ML VIAL. ONE (20:38)
[2017-01-27] MEDS ORDERED: NEOSTIGMINE METHYLSULFATE 5 MG/5 ML SYRINGE. ONE (20:38)
[2017-01-27] MEDS ORDERED: 0.9 % SODIUM CHLORIDE 10 ML DISP.SYRIN. IV PRN (21:15)
[2017-01-27] MEDS ORDERED: DEXTROSE 50% 25 GM / 50ML DISP.SYRIN. IV PRN (21:15)
[2017-01-27] MEDS ORDERED: ACETAMINOPHEN 325 MG TABLET. PO PRN (21:15)
[2017-01-27] MEDS ORDERED: oxyCODONE/APAP 7.5/325 1 TAB TABLET PO PRN (21:15)
[2017-01-27] MEDS ORDERED: ZOLPIDEM 5 MG TABLET. PO PRN (21:15)
[2017-01-27] MEDS ORDERED: traMADol 50 MG TABLET PO PRN ×2 (21:15)
[2017-01-27] MEDS ORDERED: PROCHLORPERAZINE 5 MG TABLET. PO PRN (21:15)
[2017-01-27] MEDS ORDERED: CALCIUM CARBONATE 500 MG TAB.CHEW PO PRN (21:15)
[2017-01-27] MEDS ORDERED: HYDROcodone/APAP 7.5/325MG 1 TAB TABLET PO PRN (21:15)
[2017-01-27] MEDS ORDERED: oxyCODONE/APAP 5/325 1 TAB TABLET PO PRN (21:15)
[2017-01-27] MEDS ORDERED: HYDROmorphone 2 MG/ML VIAL IV PRN ×2 (21:15→21:45)
[2017-01-27] MEDS ORDERED: MORPHINE SULFATE 2 MG/ML DISP.SYRIN. ONE (21:25)
[2017-01-27] MEDS ORDERED: ceFAZolin SODIUM 3 GM in IV DEXTROSE 5% 100 ML IV SCH (21:30)
[2017-01-27] MEDS ORDERED: MORPHINE SULFATE 4 MG/ML DISP.SYRIN. IV PRN ×2 (21:30→21:45)
[2017-01-27] MEDS ORDERED: MORPHINE SULFATE 2 MG/ML DISP.SYRIN. IV PRN (21:30)
--- NOTE | 2017-01-27 21:32 | PDOC4 ---
Operative Note Operative Note Date of surgery: 01/27/2017 Preoperative diagnosis: Recurrent tear of left rotator cuff which is irreparable Postoperative diagnosis: Same Operative procedure: Left reverse total shoulder arthroplasty Surgeon: Cee Assist: Dyana Anesthesia: Gen. endotracheal plus scalene block Estimated blood loss 150 mL Complications: None Operative indications: Patient is a little over 2 months out from left rotator cuff repair that was initially doing very well she attempted to raise her arm overhead to take her shirt off felt the sudden onset of a couple of pops and severe pain in the left shoulder. She was admitted to the hospital due to her severe pain MRI was obtained which showed a recurrent rotator cuff tear. I had previously talked to her about concerns with the repairability of the tear although it appeared to be repairable and a previous repair was attempted she had done well in her recovery up to this incident but now has severe pain and loss of function. I had talked with patient and her family about a plan of the reverse total shoulder arthroplasty as I'm concerned that the condition of her rotator cuff tissue is not amenable to repeat attempt at repair. All her questions were answered she agrees to proceed with surgical evaluation and treatment Operative text: Patient was identified procedure verified. After adequate amounts of general endotracheal anesthesia plus a pre-existing scalene block were obtained she was placed in the beachchair position with the Tmax attachment and spider arm morel. Left shoulder was prepped and draped in standard sterile fashion and after timeout was performed patient procedure identified and verified a deltopectoral approach was carried out cephalic vein taken laterally along with the deltoid superior aspect of the pectoralis was released as was the deltoid insertion. Subscapularis was released and tagged and due to the amount of [place] version a cut was made at approximately 20 version and reaming carried out up to a size 14. A trial Sandra reverse shoulder arthroplasty insert was placed glenoid was prepared remaining cartilage was scraped away and a pin placed in slight declination in the low center of the glenoid reaming was carried out to good bleeding bone particularly inferiorly remaining bone was drilled superiorly to ensure good bleeding bony purchase and inferior screw was placed in the scapular spine superior screw to the base of the coracoid both with excellent purchase and were locked in place 36 mm Roxi tear was tapped in place to engage the Cintron taper. Trial fitting was carried out up to a size 6 standard liner which gave excellent stability and range of motion without overstuffing. Trial components were then removed some bone graft from the humeral head was placed into the superior humerus and a 14 mm nonporous trabecular metal reverse shoulder stem was placed in proper version trial fitting again yielded a +6 standard liner which was then placed to lock in position and excellent stability was noted. Thorough irrigation carried out normal saline solution subscapularis was repaired with #5 Ethibond suture as was the superior aspect of the pectoralis. Fascia was closed with #1 PDS strata fix buried Vicryl was used subcutaneous and subcuticular closure with Monocryl. Sterile dressings were applied patient was returned recovery room in stable condition having tolerated procedure well ROMEL SCHMIDT MD Jan 27, 2017 21:32
[2017-01-27] MEDS ORDERED: HYDROmorphone 2 MG/ML VIAL ONE (21:34)
[2017-01-27] MEDS: HYDROmorphone 2 MG/ML VIAL IV PRN ×3 (21:37→22:02)
[2017-01-27] MEDS: CELECOXIB 200 MG CAPSULE. PO SCH (22:54)
[2017-01-27] MEDS: ceFAZolin SODIUM 3 GM in IV DEXTROSE 5% 100 ML IV SCH (22:55)
[2017-01-28] VITALS (7 sets, daily range): BP systolic 117–148; BP diastolic 57–78
[2017-01-28] MEDS: HYDROcodone/APAP 10/325 1 TAB TABLET PO PRN ×2 (00:17→06:25)
[2017-01-28] MEDS: diphenhydrAMINE HCL 25 MG CAPSULE PO PRN ×4 (00:24→17:56)
[2017-01-28] MEDS: IV DEXTROSE 5 %-0.45 % NACL 1,000 ML IV SCH ×3 (01:30→17:13)
[2017-01-28] MEDS: ceFAZolin SODIUM 3 GM in IV DEXTROSE 5% 100 ML IV SCH ×2 (05:18→09:48)
[2017-01-28] MEDS ORDERED: MAGNESIUM HYDROXIDE 2,400 MG/30 ML ORAL.SUSP. PO PRN (06:00)
--- NOTE | 2017-01-28 08:00 | RAD ---
EXAM: Left shoulder 2 views. HISTORY: Arthroplasty. COMPARISON: 01/25/2017. FINDINGS: There are changes of right 1st left total shoulder arthroplasty in expected alignment. No fractures are identified. Acromioclavicular osteoarthritis is mild. There is atelectasis in the left lung base. IMPRESSION: 1. Reverse left total shoulder arthroplasty in expected alignment.
[2017-01-28] MEDS: CELECOXIB 200 MG CAPSULE. PO SCH ×2 (08:17→20:45)
[2017-01-28] MEDS: CALCIUM CARB/VIT D3 500/200 TABLET. PO SCH ×2 (08:17→17:56)
[2017-01-28] MEDS: FERROUS SULFATE 325 MG TABLET. PO SCH ×2 (08:17→17:56)
[2017-01-28] MEDS: SENNOSIDES/DOCUSATE 8.6/50MG TABLET. PO SCH (08:17)
[2017-01-28] MEDS: MULTIVITAMIN with MINERAL TABLET. PO SCH (08:17)
--- NOTE | 2017-01-28 12:17 | PDOC ---
PROGRESS NOTES Chief Complaint Chief Complaint 1. complete tear of the supraspinatus tendon s/p left shoulder re sx (01/27) POD # 1 2, tears of the tendon of the long head of the biceps. s/p sx POD # 1 3. DJD left shoulder 4. Obesity, morbid, BMI 49 History of Present Illness History of Present Illness Doing very well ONly PO pain pill Left shoulder on a brace TArget for Home tmr by Cosme Rivero with OP pT HAs help with friends from rast[employer] etc at home so she thinks she will be ok without HH PLAn: No objections to dc plans for tmr Seen with friend and RN at bedside Vitals Vitals Vital Signs Date Time Temp Pulse Resp B/P (MAP) Pulse Ox O2 Delivery O2 Flow Rate FiO2 01/28/17 09:59 16 Room Air 01/28/17 07:00 98.4 85 117/68 (84) 94 98.4 01/27/17 22:30 2.0 Physical Exam General: Alert, Oriented X3, Cooperative, No acute distress Heart: Regular rate, No murmurs Abdomen: Normal bowel sounds, Soft, No tenderness, No hepatosplenomegaly, No masses Extremities: No edema, Other (refer to above) Skin: No rashes, No breakdown, No significant lesion Review of Systems Review of Systems left shoulder post op pain, all else 14 pt reviewed, neg Assessment and Plan Assessmemt and Plan Problems Medical Problems: (1) Shoulder pain, left Status: Acute Problems: Comment Review of Relevant I have reviewed the following items liam (where applicable) has been applied. Medications Current Medications Morphine Sulfate 2 mg PRN Q15MIN PRN IV/SQ PAIN GREATER THAN 3/10 Last administered on 01/25/17 14:19; Start 01/25/17 at 10:15; Stop 01/26/17 at 10 :14; Status DC Ondansetron HCl (Zofran) 4 mg 1X ONCE IV Last administered on 01/25/17 10:25 ; Start 01/25/17 at 10:15; Stop 01/25/17 at 10:19; Status DC Lorazepam (Ativan) 1 mg 1X ONCE IV Last administered on 01/25/17 15:52; Start 01/25/17 at 12:45; Stop 01/25/17 at 12:46; Status DC Morphine Sulfate 2 mg PRN Q2HR PRN IV PAIN Last administered on 01/26/17 06: 55; Start 01/25/17 at 15:30; Stop 01/26/17 at 09:46; Status DC Naproxen (Naprosyn) 500 mg BID PO ; Start 01/25/17 at 21:00; Stop 01/25/17 at 21:00; Status DC Celecoxib (CeleBREX) 200 mg DAILY PO ; Start 01/25/17 at 16:00; Stop 01/25/17 at 17:47; Status DC Oxycodone/ Acetaminophen (Percocet 7.5/ 325) 1 tab PRN Q4HRS PRN PO PAIN Last administered on 01/26/17 23:47; Start 01/25/17 at 15:45 Calcium/Vitamin D (Oscal D 500mg/ 200uts) 1 tab BIDWMEALS PO Last administered on 01/28/17 08:17; Start 01/25/17 at 17:00 Multivitamins (Thera M Plus) 1 tab DAILY PO ; Start 01/26/17 at 09:00; Stop at 21:27; Status DC Fentanyl Citrate (Fentanyl 2ml Vial) 50 mcg PRN Q2HR PRN IV PAIN; Start at 17:45 Diphenhydramine HCl (Benadryl) 25 mg PRN Q6HRS PRN PO ITCHING Last administered on 01/28/17 06:25; Start 01/25/17 at 18:00 Info (Do NOT chart on this placeholder) 1 each 1X ONCE MC ; Start 01/26/17 at 09:00; Stop 01/26/17 at 09:01; Status UNV Influenza Virus Vaccine Quadrival (Fluarix Quad [id number] Syringe) 0.5 ml ONCE ONCE VAX IM ; Start 01/26/17 at 09:00; Stop 01/26/17 at 09:01; Status DC Morphine Sulfate 4 mg PRN Q2HR PRN IV PAIN Last administered on 01/28/17 09: 59; Start 01/26/17 at 09:45 Saliva Substitute (Biotene Moisturizing Mouth) 2 spray PRN Q15MIN PRN PO DRY MOUTH; Start 01/26/17 at 09:45 Dextrose/Sodium Chloride 1,000 ml @ 100 mls/hr 1X ONCE IV Last administered on 01/26/17 10:40; Start 01/26/17 at 09:45; Stop 01/26/17 at 19:44; Status DC Ondansetron HCl (Zofran) 4 mg PRN Q6HRS PRN IV NAUSEA/VOMITING; Start at 07:00; Stop 01/28/17 at 06:59; Status DC Fentanyl Citrate (Fentanyl 2ml Vial) 25 mcg PRN Q5MIN PRN IV MILD PAIN; Start 01/27/17 at 07:00; Stop 01/28/17 at 06:59; Status DC Fentanyl Citrate (Fentanyl 2ml Vial) 50 mcg PRN Q5MIN PRN IV MODERATE PAIN Last administered on 01/27/17 21:11; Start 01/27/17 at 07:00; Stop 01/28/17 at 06:59; Status DC Ringer's Solution 1,000 ml @ 30 mls/hr Q24H IV ; Start 01/27/17 at 07:00; Stop 01/27/17 at 18:59; Status DC Lidocaine HCl (Xylocaine-Mpf 1% Vial) 2 ml PRN 1X PRN ID IV START; Start 01/27 at 07:00; Stop 01/28/17 at 06:59; Status DC Prochlorperazine Edisylate (Compazine) 5 mg PACU PRN PRN IV NAUSEA, MRX1 Last administered on 01/27/17 21:12; Start 01/27/17 at 07:00; Stop 01/28/17 at 06 :59; Status DC Ropivacaine (Naropin 0.5%) 30 ml STK-MED ONCE .ROUTE ; Start 01/27/17 at 16:44 ; Stop 01/27/17 at 16:45; Status DC Midazolam HCl (Versed) 2 mg STK-MED ONCE .ROUTE ; Start 01/27/17 at 16:45; Stop 01/27/17 at 16:46; Status DC Propofol 20 ml @ As Directed STK-MED ONCE IV ; Start 01/27/17 at 17:43; Stop 01/27/17 at 17:44; Status DC Lidocaine HCl (Lidocaine Pf 2% Vial) 5 ml STK-MED ONCE .ROUTE ; Start 01/27/17 at 17:43; Stop 01/27/17 at 17:44; Status DC Dexamethasone Sodium Phosphate (Decadron) 20 mg STK-MED ONCE .ROUTE ; Start at 17:44; Stop 01/27/17 at 17:45; Status DC Ondansetron HCl (Zofran) 4 mg STK-MED ONCE .ROUTE ; Start 01/27/17 at 17:44; Stop 01/27/17 at 17:45; Status DC Sevoflurane (Ultane) 90 ml STK-MED ONCE IH ; Start 01/27/17 at 17:44; Stop at 17:45; Status DC Fentanyl Citrate (Fentanyl 2ml Vial) 100 mcg STK-MED ONCE .ROUTE ; Start at 17:45; Stop 01/27/17 at 17:46; Status DC Rocuronium Butterfield (Zemuron) 100 mg STK-MED ONCE .ROUTE ; Start 01/27/17 at 17: 45; Stop 01/27/17 at 17:46; Status DC Cefazolin Sodium/ Dextrose 50 ml @ As Directed STK-MED ONCE IV ; Start at 18:21; Stop 01/27/17 at 18:22; Status DC Phenylephrine HCl 1 mg STK-MED ONCE IV ; Start 01/27/17 at 19:01; Stop at 19:02; Status DC Cefazolin Sodium/ Dextrose 50 ml @ 100 mls/hr 1X ONCE IV ; Start 01/27/17 at 19:30; Stop 01/27/17 at 19:59; Status DC Neostigmine Methylsulfate 5 mg STK-MED ONCE .ROUTE ; Start 01/27/17 at 20:38; Stop 01/27/17 at 20:39; Status DC Glycopyrrolate (Robinul) 1 mg STK-MED ONCE .ROUTE ; Start 01/27/17 at 20:38; Stop 01/27/17 at 20:39; Status DC Sevoflurane (Ultane) 90 ml STK-MED ONCE IH ; Start 01/27/17 at 21:03; Stop at 21:04; Status DC Oxycodone HCl (OxyCONTIN) 20 mg DAILYWSUP PO ; Start 01/29/17 at 17:00; Stop 01/29/17 at 17:00; Status DC Acetaminophen/ Hydrocodone Bitart (Lortab 7.5/325) 1 tab PRN Q3HRS PRN PO MODERATE PAIN; Start 01/27/17 at 21:15 Oxycodone/ Acetaminophen (Percocet 5/325) 1 tab PRN Q3HRS PRN PO MODERATE PAIN ; Start 01/27/17 at 21:15 Tramadol HCl (Ultram) 50 mg PRN QID PRN PO MODERATE PAIN; Start 01/27/17 at 21 :15 Acetaminophen/ Hydrocodone Bitart (Lortab 10/325) 1 tab PRN Q3HRS PRN PO SEVERE PAIN Last administered on 01/28/17 06:25; Start 01/27/17 at 21:15 Oxycodone/ Acetaminophen (Percocet 7.5/ 325) 1 tab PRN Q3HRS PRN PO SEVERE PAIN ; Start 01/27/17 at 21:15 Tramadol HCl (Ultram) 100 mg PRN QID PRN PO SEVERE PAIN; Start 01/27/17 at 21: 15 Multivitamins (Thera M Plus) 1 tab DAILY PO Last administered on 01/28/17 08: 17; Start 01/28/17 at 09:00 Senna/Docusate Sodium (Senna Plus) 1 tab DAILY PO Last administered on 08:17; Start 01/28/17 at 09:00 Ferrous Sulfate (Feosol) 325 mg BIDAFTMEAL PO Last administered on 01/28/17 08:17; Start 01/28/17 at 09:00 Celecoxib (CeleBREX) 200 mg BID PO Last administered on 01/28/17 08:17; Start 01/27/17 at 21:00 Dextrose/Sodium Chloride 1,000 ml @ 100 mls/hr Q10H IV Last administered on 01:30; Start 01/27/17 at 21:13 Prochlorperazine Maleate (Compazine) 10 mg PRN Q4HRS PRN PO NAUSEA/VOMITING; Start 01/27/17 at 21:15 Magnesium Hydroxide (Milk Of Magnesia) 2,400 mg 1X PRN PRN PO CONSTIPATION; Start 01/28/17 at 06:00 Bisacodyl (Dulcolax Supp) 10 mg 1X PRN PRN IA CONSTIPATION; Start 01/28/17 at 16:00 Acetaminophen (Tylenol) 650 mg PRN Q4HRS PRN PO MILD PAIN / TEMP; Start at 21:15 Zolpidem Tartrate (Ambien) 5 mg PRN QHS PRN PO INSOMNIA, MAY REPEAT IN 1HR; Start 01/27/17 at 21:15 Calcium Carbonate/ Glycine (Tums) 500 mg PRN QID PRN PO INDIGESTION; Start at 21:15 Sodium Chloride (Normal Saline Flush) 10 ml QSHIFT PRN IV AFTER MEDS AND BLOOD DRAWS; Start 01/27/17 at 21:15 Hydromorphone HCl (Dilaudid) 0.4 mg PRN Q1HR PRN IV PAIN; Start 01/27/17 at 21 :15; Stop 01/27/17 at 21:41; Status DC Dextrose (Dextrose 50%-Water Syringe) 12.5 gm PRN Q15MIN PRN IV SEE COMMENTS; Start 01/27/17 at 21:15 Cefazolin Sodium 3 gm/Dextrose 100 ml @ 200 mls/hr Q6H IV ; Start 01/27/17 at 21:30; Stop 01/27/17 at 21:41; Status DC Morphine Sulfate 2 mg STK-MED ONCE .ROUTE ; Start 01/27/17 at 21:25; Stop at 21:26; Status DC Morphine Sulfate 2 mg PRN Q10MIN PRN IV PAIN Last administered on 01/27/17t 21 :30; Start 01/27/17 at 21:30; Stop 01/28/17 at 07:12; Status DC Hydromorphone HCl (Dilaudid) 0.5 mg PRN Q10MIN PRN IV PAIN Last administered on 01/27/17t 22:02; Start 01/27/17 at 21:30; Stop 01/28/17 at 07:12; Status DC Morphine Sulfate 4 mg PRN Q10MIN PRN IV PAIN; Start 01/27/17 at 21:30; Stop 01/27/17 at 21:41; Status DC Hydromorphone HCl (Dilaudid) 2 mg STK-MED ONCE .ROUTE ; Start 01/27/17 at 21:34 ; Stop 01/27/17 at 21:41; Status DC Cefazolin Sodium 3 gm/Dextrose 100 ml @ 200 mls/hr Q6H IV Last administered on 01/28/17t 09:48; Start 01/27/17 at 23:00; Stop 01/28/17 at 11:29; Status DC Oxycodone HCl (OxyCONTIN) 10 mg DAILYWSUP PO ; Start 01/29/17 at 17:00; Stop 01/31/17 at 16:59 Hydromorphone HCl (Dilaudid) 0.4 mg PRN Q1HR PRN IV SEVERE PAIN; Start at 21:45 Morphine Sulfate 4 mg PRN Q10MIN PRN IV PAIN; Start 01/27/17 at 21:45; Stop 01/28/17 at 21:29 Cefazolin Sodium/ Dextrose (Ancef 2gm Premix) 2 gm STK-MED ONCE IV ; Start at 18:21; Stop 01/28/17 at 08:51; Status DC Active Scripts Active Reported Percocet 7.5-325 Mg Tablet (Oxycodone/Acetaminophen) 1 Each Tablet 1 Tab PO PRN Q4HRS PRN Celebrex (Celecoxib) 200 Mg Capsule 1 Cap PO DAILY Multi Vitamin Daily (Multivitamin) 1 Each Tablet 1 Each PO DAILY Calcium (Calcium Carbonate) 600 Mg Tablet 1,800 Mg PO DAILY Vitals/I & O Vital Sign - Last 24 Hours 01/27/17 01/27/17 01/27/17 01/27/17 14:44 16:44 21:03 21:11 Temp 98.4 97.7 98.0 98.4 97.7 98.0 Pulse 83 112 Resp 18 12 16 16 B/P (MAP) 100/74 (83) 151/71 199/97 Pulse Ox 97 96 100 100 O2 Delivery BiPAP/CPAP Room Air Simple Mask Room Air O2 Flow Rate 10 01/27/17 01/27/17 01/27/17 01/27/17 21:18 21:30 21:33 21:48 Temp 98.4 98.4 Pulse 102 96 100 Resp 16 16 16 14 B/P (MAP) 151/79 153/72 149/58 Pulse Ox 99 99 98 97 O2 Delivery Simple Mask Nasal Cannula Nasal Cannula Nasal Cannula O2 Flow Rate 10 2.0 2 2 01/27/17 01/27/17 01/27/1717 21:48 22:02 22:15 22:15 Resp 16 18 16 16 Pulse Ox 97 95 O2 Delivery Nasal Cannula Nasal Cannula Nasal Cannula Nasal Cannula O2 Flow Rate 2.0 2.0 2.0 2.0 01/27/17 01/27/17 01/27/17 01/27/17 22:15 22:15 22:30 22:30 Temp 98.3 98.3 Pulse 89 88 Resp 20 16 B/P (MAP) 140/65 (90) 140/75 (96) Pulse Ox 93 O2 Delivery Nasal Cannula Nasal Cannula Nasal Cannula O2 Flow Rate 2.0 2.0 2.0 01/27/17 01/27/17 01/27/17 01/28/17 22:45 23:00 23:30 00:17 Temp 98.6 98.6 Pulse 81 81 87 Resp 16 16 B/P (MAP) 138/76 (96) 134/71 (92) 145/75 (98) Pulse Ox 94 90 94 O2 Delivery BiPAP/CPAP 01/28/17 01/28/17 01/28/17 01/28/17 00:30 01:00 01:15 03:00 Temp 98.3 98.3 Pulse 93 78 80 Resp 16 15 B/P (MAP) 129/60 (83) 129/64 (85) 129/57 (81) Pulse Ox 94 O2 Delivery BiPAP/CPAP 01/28/17 01/28/17 01/28/17 01/28/17 06:25 07:00 07:42 09:59 Temp 98.4 98.4 Pulse 85 Resp 18 18 16 B/P (MAP) 117/68 (84) Pulse Ox 94 94 O2 Delivery Room Air Room Air Room Air Intake and Output 01/28/17 01/28/17 01/29/17 15:00 23:00 07:00 Intake Total 500 ml Output Total 1100 ml Balance -600 ml ROSITA DIAZ MD Jan 28, 2017 12:17
[2017-01-28] MEDS ORDERED: BISACODYL 10 MG SUPP.RECT. PR PRN (16:00)
[2017-01-28] MEDS: oxyCODONE/APAP 7.5/325 1 TAB TABLET PO PRN (17:56)
[2017-01-29] MEDS: oxyCODONE/APAP 7.5/325 1 TAB TABLET PO PRN (00:11)
[2017-01-29] MEDS: diphenhydrAMINE HCL 25 MG CAPSULE PO PRN ×3 (00:11→13:17)
[2017-01-29] MEDS: IV DEXTROSE 5 %-0.45 % NACL 1,000 ML IV SCH ×2 (00:45→00:49)
[2017-01-29 04:43] LABS: HEMATOCRIT 36.5 % (36.0-47.0); HEMOGLOBIN 12.7 g/dL (12.0-15.5)
[2017-01-29 05:00] VITALS: BP 122/54
[2017-01-29] MEDS: CALCIUM CARB/VIT D3 500/200 TABLET. PO SCH (07:40)
[2017-01-29] MEDS: FERROUS SULFATE 325 MG TABLET. PO SCH (07:41)
[2017-01-29] MEDS: CELECOXIB 200 MG CAPSULE. PO SCH (07:41)
[2017-01-29] MEDS: MULTIVITAMIN with MINERAL TABLET. PO SCH (07:41)
[2017-01-29] MEDS: SENNOSIDES/DOCUSATE 8.6/50MG TABLET. PO SCH (07:41)
[2017-01-29] MEDS: HYDROcodone/APAP 10/325 1 TAB TABLET PO PRN ×2 (07:44→13:17)
--- NOTE | 2017-01-29 09:24 | PDOC ---
ORTHO PROGRESS NOTES Subjective Patient is doing well. Pain well controlled. Doing well with therapy. Denies N/T , denies CP, Denies SOB. Plans to DC today Post-op Day: 2 (Left reverse total shoulder) Vitals Vital Signs Date Time Temp Pulse Resp B/P (MAP) Pulse Ox O2 Delivery O2 Flow Rate FiO2 01/29/17 07:44 Room Air 01/29/17 05:00 97.9 75 19 122/54 (76) 98 97.9 01/28/17 15:00 2.0 Labs Laboratory Tests Test 01/29/17 04:30 Hemoglobin 12.7 g/dL (12.0-15.5) Hematocrit 36.5 % (36.0-47.0) Mean Corpuscular Hemoglobin Concent 35 g/dL (31-37) Laboratory Tests Test 01/29/17 04:30 Hemoglobin 12.7 g/dL (12.0-15.5) Hematocrit 36.5 % (36.0-47.0) Mean Corpuscular Hemoglobin Concent 35 g/dL (31-37) Notes patient awake and alert, breathing nonlabored, no acute distress. Incision covered with dressing, intact. Neurovascular intact. Problems: (1) Traumatic complete tear of left rotator cuff Assessment and Plan DC home today pain rx given FOllow up two weeks Problem Qualifiers (1) Traumatic complete tear of left rotator cuff: Encounter type: subsequent encounter Qualified Codes: S46.012D - Strain of muscle(s) and tendon(s) of the rotator cuff of left shoulder, subsequent encounter SHARIF SARKAR APRN Jan 29, 2017 09:24
[2017-01-29] MEDS ORDERED: oxyCODONE/APAP 10/325 1 TAB TABLET PO PRN (10:30)
[2017-01-29] MEDS ORDERED: OXYC1TAB9 PO (10:36)
[2017-01-29 11:25] VITALS: BP 113/54
--- NOTE | 2017-01-29 13:08 | PDOC3 ---
Discharge Summary [facility] Date of Admission: Jan 25, 2017 Discharge Date: Jan 29, 2017 Admitting Diagnosis 1. complete tear of the supraspinatus tendon s/p left shoulder reverse arthroplasty sx (01/27) 2, tears of the tendon of the long head of the biceps. s/p sx 3. DJD left shoulder 4. Obesity, morbid, BMI 49 Problems: Final Diagnosis CONSULTS ortho Brief Hospital Course Ms. Henao is a 66 old F, who had rotator cuff tear, underwent left reverse total arthroplasty with dr. Locke on 01/27. pain is controlled ok with percocet 10. dc home dc time 35min General: Alert, Oriented X3, Cooperative, No acute distress Heart: Regular rate, No murmurs Abdomen: Normal bowel sounds, Soft, No tenderness, No hepatosplenomegaly, No masses Extremities: No edema, Other (refer to above). left arm in the sling Skin: No rashes, No breakdown, No significant lesion Patient History: FH: Alzheimers disease 32 MOTHER FH: lung cancer G8 SON Patient's father is 33 FATHER Patient's mother is 32 MOTHER Unknown Problems: Disposition home CONDITION AT DISCHARGE: Improved Diet regular Scheduled Calcium Carbonate (Calcium), 1,800 MG PO DAILY, (Reported) Celecoxib (Celebrex), 1 CAP PO DAILY, (Reported) Multivitamin (Multi Vitamin Daily), 1 EACH PO DAILY, (Reported) Scheduled PRN Oxycodone Hcl/Acetaminophen (Oxycodone-Acetaminophen 10-325), 1 TAB PO PRN Q4HRS PRN for PAIN MOD TO SEV Oxycodone/Apap 7.5-325 (Percocet 7.5-325 Mg Tablet), 1 TAB PO PRN Q4HRS PRN for PAIN, (Reported) Discontinued Medications Fluconazole (Diflucan), 1 TAB PO ONCE, (Reported) Follow Up ortho in 2 weeks ESHA CARROLL MD Jan 29, 2017 13:08
[2017-01-29] MEDS ORDERED: oxyCODONE ER 10 MG TAB.ER.12H PO SCH ×2 (17:00)
--- NOTE | 2017-01-30 13:42 | PATHOLOGY ---
PATHOLOGY REPORT * * * * * * * * FINAL DIAGNOSIS: Humeral head and segment of dense fibroconnective tissue, left total reverse shoulder arthroplasty: - Degenerative arthritis. - Focal reactive fibrosis and neovascularization of fibroconnective tissue. ([facility]:; 01/30/2017) REPORT ELECTRONICALLY SIGNED BY: Abhay Longoria M.D. DATE/TIME: 01/30/2017 13:42 * * * * * * * * GROSS PATHOLOGY: Received in formalin labeled "Dorothy Jones, left shoulder bone and tissue," is a humeral head measuring 4.4 x 4.4 x 2.1 cm in greatest dimensions. The articular surface is smooth to granular and tuttle-brown in appearance. Sectioning the bone reveals pink-tuttle to light brown cut surfaces. Also received within the specimen container is an irregular segment of pale tuttle to dark brown soft tissue measuring 2.1 x 1.6 x 0.6 cm in greatest dimensions. Mobile Product Manager tissue is submitted in cassette A1, following decalcification. ([facility]; 01/29/2017) INITIAL CPT CODE(S): A; 56413, 14695 Professional services performed [place] [facility] [place] [address] Technical services performed by [facility] at [address] [place] [address], [address], [place] [address]. Georgette Rios MD SPECIMEN(S) RECEIVED: A.Left shoulder bone and tissue CLINICAL HISTORY: Left shoulder recurrent rotator cuff tear PATIENT: DOROTHY JONES /AGE: 5 1950 (Age: 66) PATIENT #: [id number] ALT CASE #: SPECIMEN COLLECTION DATE: 01/27/2017 SPECIMEN RECEIVED DATE: 01/28/2017 [facility] - [address] [place] [address] - PHONE: [phone] * * * END OF REPORT * * *
== END 2017-01-29 13:30 | disposition home or self-care (01) | DRG 483 ==
LOC: ER 09:36 → 6 SOUTH 11:20 → UNDODISIN 01-27 21:41 → 4 SOUTHEST 01-27 22:12
PROVIDERS: ADMIT Internal Medicine; ATTEND Internal Medicine
PROC: 5A09457 Assistance with Respiratory Ventilation, 24-96 Consecutive Hours, Continuous Positive Airway Pressure (ICD-10-PCS; 2017-01-25)
PROC: 0RRK00Z Replacement of Left Shoulder Joint with Reverse Ball and Socket Synthetic Substitute, Open Approach (ICD-10-PCS; principal; 2017-01-27 15:30)
DX: M75.122 Complete rotator cuff tear or rupture of left shoulder, not specified as traumatic (principal); E66.01 Morbid (severe) obesity due to excess calories; Z68.42 Body mass index [BMI] 45.0-49.9, adult; S46.112A Strain of muscle, fascia and tendon of long head of biceps, left arm, initial encounter; M19.012 Primary osteoarthritis, left shoulder; Z96.619 Presence of unspecified artificial shoulder joint; X58.XXXA Exposure to other specified factors, initial encounter; Y93.89 Activity, other specified; Y92.89 Other specified places as the place of occurrence of the external cause; Z82.0 Family history of epilepsy and other diseases of the nervous system; Z80.1 Family history of malignant neoplasm of trachea, bronchus and lung; Z82.49 Family history of ischemic heart disease and other diseases of the circulatory system; Y99.8 Other external cause status; Z88.1 Allergy status to other antibiotic agents; Z88.5 Allergy status to narcotic agent; Z91.013 Allergy to seafood
CPT/HCPCS: 36415; 73030; 73221; 85014; 85018; 88304; 88311; 96374; J0690; J0780; J1100; J1170; J2060; J2250; J2270; J2370; J2405; J2704; J2710; J2795; J3010; J3490; J7030; Q0163; 97110; 97116; 97530; 97535; 99285-25; C1769; J2001

== ENCOUNTER → 2019-05-16 | Outpatient (CLI) | payer MEDICARE, OTHER ==
[~2019-05-16] MED LIST changes: -OXYC-327 PO; +OXYC-411 PO; +OXYC1TAB19 PO
--- NOTE | 2019-05-16 11:41 | KCIC ---
LUMBAR SPINE WO CONTRAST History: Acute low back pain. Right lower extremity radiculopathy. Technique: Multiplanar, multi sequential MR imaging was performed of the lumbar spine. Comparison: None Findings: Grade 1 anterolisthesis L4 on L5. Normal vertebral body height. No fracture. Degenerative endplate edema L4-L5. T12, L1 and L2 vertebral body hemangiomas. Conus terminates at the normal location. No evidence of nerve root clumping. L1-L2: Small posterior disc bulge. No canal or neuroforaminal narrowing. Mild facet arthropathy. L2-L3: Small posterior disc bulge. No canal narrowing. Minimal bilateral neuroforaminal narrowing. Moderate facet arthropathy. L3-L4: Small posterior disc bulge. Moderate facet arthropathy. No canal narrowing. No neuroforaminal narrowing. L4-L5: Anterolisthesis. Disc uncovering. Disc bulge. Advanced facet arthropathy. Perifacet edema greatest on the right. Pulmonary edema within the right L4 pedicle. No canal narrowing. Ligament of flavum thickening. Moderate right and mild left neuroforaminal narrowing. L5-S1: Broad-based posterior disc bulge. Advanced facet arthropathy. No canal narrowing. No neuroforaminal narrowing. Impression: 1. Multilevel lumbar spondylosis most prominent L4-L5. 2. L4-L5 grade 1 anterolisthesis due to advanced facet arthropathy with samson-facet edema. 3. Right L4 pedicle bone marrow edema, may relate to degenerative changes or stress reaction. Electronically signed by: Brian Burgos DO (05/16/2019 11:38 AM) [facility]
== END | disposition home or self-care (01) ==
LOC: KCIC MRI 09:13
PROVIDERS: ATTEND Orthopaedic Surgery
DX: M47.816 Spondylosis without myelopathy or radiculopathy, lumbar region (principal); M46.87 Other specified inflammatory spondylopathies, lumbosacral region; M16.11 Unilateral primary osteoarthritis, right hip
CPT/HCPCS: 72148

== ENCOUNTER → 2019-06-10 | Outpatient (CLI) | payer MEDICARE, OTHER ==
[~2019-06-10] MED LIST changes: +ACET500T68 PO; +CETI10TA24 PO; +CRESTOR5 MG PO; +MAGN400C PO; +NAPR-683 PO; +OMEG-101 PO; +VITA1CAP7 PO
--- NOTE | 2019-06-10 21:30 | PAIN ---
DATE OF SERVICE: 06/10/2019 INITIAL CONSULTATION FOR PAIN CLINIC CHIEF COMPLAINT: Back and right lower extremity pain. HISTORY OF PRESENT ILLNESS: This is a 68-year-old female who presents with history of pain in the low back, right lower extremity since 09/2018, not as a result of any specific injury or accident that she is aware of, but it has been getting worse with time and activity. The patient has tried physical therapy and is started another round of this just a few days ago, which seemed to help to some extent. She has been doing some stretching and strengthening exercises on her own. She has had some chiropractic treatment as well in November of last year, which helped the pain at that time. The patient reports pain is returning now, it has not been significantly responsive to the stretching and strengthening exercises. The patient had seen her orthopedic surgeon and had some MRI scan as well as x-rays of the hip and the back with the lumbar spine showing multilevel lumbar spondylosis, most prominent at L4-L5 with right L4 pedicle edema, ligamentum flavum thickening, moderate right and mild left neural foraminal narrowing and broad-based posterior disk bulge at L5-S1 as well, but without canal narrowing. The patient's hip shows osteoarthritis to a mild extent in the right hip as well, but without significant severe loss of space. The patient reports the pain does not awaken her from sleep at night, much better with sitting or lying down, worse with walking, standing, changing positions, especially walking and stepping with her right leg such as on a stair or curb but it is only moderate extent, not severe and not debilitating. The patient reports she does have some radiation of pain into the lateral thigh, posterior thigh and into the right groin with walking, standing as well as into the lower leg and the foot involving the middle 3 toes. The patient reports her disability rating from 0-10, 10 being the worst, is a 2 with family and home responsibilities, 3 with recreation, 1 with social activity, occupation, self-care and 0 with sexual behavior and life support activities. PAST MEDICAL HISTORY: Significant for arthritis, CPAP use. PREVIOUS SURGERY: Include bilateral cataract extractions, tonsillectomy, thyroid excision, right rotator cuff repair, left rotator cuff repair, right breast biopsy, cholecystectomy, hysterectomy, right knee surgery, carpal tunnel surgery. CURRENT MEDICATIONS: Include calcium, vitamins, magnesium, fish oil, rosuvastatin, vitamin D, naproxen, acetaminophen and cetirizine (Zyrtec). ALLERGIES: THE PATIENT IS ALLERGIC TO CODEINE, SHELLFISH, AND VANCOMYCIN. FAMILY HISTORY: Significant for hypertension, dementia, and heart disease. SOCIAL HISTORY: The patient does not drink alcohol, does not smoke, and does not use any illegal, illicit or recreational drugs. She is single, lives locally in [place], [place], and is currently retired. REVIEW OF SYSTEMS: The patient's review of systems is positive for those items mentioned in history of present illness. All systems reviewed and otherwise negative. It is complete, full and well documented on the patient's chart. PHYSICAL EXAMINATION: VITAL SIGNS: The patient's blood pressure 134/61, pulse 74, respirations 18, temperature 98.5 degrees Fahrenheit. Height 5 feet 6 inches. Weight 299 pounds. GENERAL: The patient is awake, alert, oriented, appropriate, very pleasant demeanor. HEENT: Head shows normocephalic, atraumatic. Extraocular movements are intact and symmetrical. Oral cavity: Mucous membranes moist and pink. Dentition is intact. NECK: Shows anterior throat supple without palpable lymphadenopathy noted. Swallow reflex symmetrical. CHEST: Shows normal on inspection. Breath sounds are clear bilaterally. HEART: Shows S1, S2 clear. No murmurs auscultated. ABDOMEN: Soft, nontender, nondistended. No palpable organomegaly is noted. No rebound or guarding demonstrated. BACK: Shows spine grossly in the midline. Normal appearing thoracic kyphosis and some minor flattening of lumbar lordotic curvature. Lumbar paraspinous muscle shows symmetrical on inspection, on palpation some moderate tenderness diffusely bilaterally but only diffusely without significant radiation. The patient's back shows good rotational motion both laterally greater than 10 degrees right and left as well as extension greater than 10 degrees and forward flexion 45 degrees without significant increase in pain. The patient shows no tenderness over the spinous processes, sacrum or sacroiliac regions. EXTREMITIES: Lower extremities show deep tendon reflexes 1+ in the patellar and tendo calcaneus tendons. Motor exam is strong with 5/5 dorsiflexion, extension, quadriceps and hamstring flexion, equal and symmetrical. Peripheral pulses are 1+ posterior tibia. No peripheral edema is noted. Lower extremities are warm and dry to touch, equal in color and appearance. Gaenslen's and José's maneuvers shows mild José's maneuver positive on the right, but only very mild pain in the right groin and the hip itself. Straight leg raise noted to be negative for reproduction of radicular symptoms bilaterally. The patient is able to stand, stand on her toes without difficulty or loss of balance, walks with normal appearing gait without any assistive devices. SKIN: The patient's skin shows warm and dry, good turgor. No edema. No sores, rashes or bruising throughout. IMPRESSION: 1. This is a 68-year-old female with approximate 7-month history of pain in low back, right lower extremity in a radicular fashion. 2. Lumbar MRI scan as noted. 3. Arthritis. 4. Obesity. PLAN: Options were discussed with the patient including conservative medical managements, continued physical therapies, interventional techniques. She would like to pursue interventional techniques. We discussed a lumbar epidural steroid injection using description as well as anatomical models to describe the procedure. The patient will wait for a better scheduling time. She has some pending appointment today and tomorrow. She would like to be ready for and we will have her return to clinic in approximately 1 week. We will plan on lumbar epidural steroid injection at that time. In the meantime, the patient will continue with physical therapy as well as her appointments as well as home stretching exercises and follow up as scheduled. STEPHEN DE LEON MD DR: RENZO/michael JOB#: [id number] / [id number]
== END ==
LOC: PNCL 11:02
PROVIDERS: ATTEND Anesthesiology
DX: M16.11 Unilateral primary osteoarthritis, right hip (principal); M54.5 Low back pain; M40.294 Other kyphosis, thoracic region; M19.90 Unspecified osteoarthritis, unspecified site; E66.9 Obesity, unspecified
CPT/HCPCS: G0463

== ENCOUNTER → 2019-06-16 | Outpatient (CLI) | payer MEDICARE, OTHER ==
[~2019-06-16] MED LIST changes: +IOHEXOL 180 MG/ML 10 ML VIAL. ONE; +methylPREDNISolone ACETATE 40 MG/ML VIAL. ONE; +methylPREDNISolone ACETATE 80 MG/ML VIAL. ONE
--- NOTE | 2019-06-16 10:01 | PAIN ---
DATE OF SERVICE: 06/16/2019 PROGRESS NOTE FOR PAIN CLINIC DIAGNOSES: Lumbar radiculopathy with lumbar degenerative disk disease and lumbar spondylosis. HISTORY OF PRESENT ILLNESS: The patient is a 68-year-old female, who returns for followup status post initial evaluation and returns for injection today. We discussed lumbar epidural steroid injection on last visit. The patient would like to proceed. Still pain in the low back, right lower extremity as it was previously, posterior gluteus, lateral thigh, anterior thigh, medial leg and medial lower leg. The patient reports a 4-5 on a scale of 10 at its worst over the past week, 3 on average and a 1 at its least and is a 4 today. The patient reports it is aching and tight in the back with some radiation to the right thigh, which is burning, and some constant backache as well. The patient reports no new motor or sensory deficits, better with sitting or lying down, does not awaken her from sleep at night. The patient reports no new motor or sensory deficits, no new bowel or bladder incontinence or other complaints. PHYSICAL EXAMINATION: VITAL SIGNS: The patient's blood pressure is 143/87, pulse 75, respirations 20, temperature is 98.1 degrees Fahrenheit, weight is 302 pounds. GENERAL: The patient is awake, alert, oriented, appropriate, very pleasant demeanor. HEENT: Shows normocephalic, atraumatic. Extraocular movements are intact and symmetrical. Oral cavity: Mucous membranes moist and pink; dentition is intact. NECK: Shows anterior throat supple without palpable lymphadenopathy noted. Swallow reflex symmetrical. CHEST: Shows normal on inspection. Breath sounds are clear to auscultation bilaterally. HEART: Shows S1, S2 clear. No murmurs auscultated. ABDOMEN: Soft, nontender and nondistended. No palpable organomegaly is noted. No rebound or guarding demonstrated. BACK: Shows spine grossly in the midline. Normal-appearing thoracic kyphosis and lumbar lordotic curvature is slightly flattened. Lumbar paraspinous muscle shows symmetrical on inspection, with palpation shows some moderate tenderness diffusely, but only diffusely without significant radiation. The patient has good rotational motion of lumbar spine, both laterally as well as extension and flexion. EXTREMITIES: Lower extremities show deep tendon reflexes at 1+ in the patellar and tendo-calcaneus tendons. Motor exam is strong with 5/5 dorsiflexion, extension, quadriceps and hamstring flexion. Peripheral pulses are 1+ posterior tibial. No peripheral edema is noted bilaterally. Options were discussed with the patient. The patient's old chart was reviewed as her current medication regimen updated. Current review of systems updated as well. We will proceed with a lumbar epidural steroid injection today with fluoroscopic guidance. Risks were again discussed including, but not limited to bleeding, infection, possibility of epidural hematoma, subsequent neurological compromise, dural puncture, headaches, spinal cord and/or nerve damage, side effects of steroid medication and poor results regarding pain control. The patient understands and wished to proceed. The patient will return to clinic in approximately 2 weeks for followup. She was counseled on return appointment, activity level and side effects to be aware of. DIAGNOSES: Lumbar radiculopathy with lumbar degenerative disk disease and lumbar spondylosis. PROCEDURE: Lumbar epidural steroid injection, translaminar approach at the L4-L5 level using C-arm fluoroscopic guidance under sterile prep and drape using local anesthetic. MEDICATIONS INJECTED: A total of 120 mg Depo-Medrol plus 10 mL of preservative-free normal saline and 2 mL of contrast. CONDITION AT DISCHARGE: Stable. The patient tolerated procedure well, had no complications. STEPHEN DE LEON MD DR: RENZO/michael JOB#: [id number] / [id number]
== END ==
LOC: PNCL 08:02
PROVIDERS: ATTEND Anesthesiology
DX: M51.16 Intervertebral disc disorders with radiculopathy, lumbar region (principal); M47.816 Spondylosis without myelopathy or radiculopathy, lumbar region
CPT/HCPCS: 62323; J1030; J1040; Q9965

== ENCOUNTER → 2019-07-01 | Outpatient (CLI) | payer MEDICARE, OTHER ==
--- NOTE | 2019-07-01 09:51 | PAIN ---
DATE OF SERVICE: 07/01/2019 PROGRESS NOTE FOR PAIN CLINIC DIAGNOSIS: Lumbar radiculopathy with lumbar degenerative disk disease, lumbar spondylosis. HISTORY OF PRESENT ILLNESS: The patient is a 68-year-old female, who returns for followup status post lumbar epidural steroid injection x 1. The patient reports about 90% improvement for the first few weeks. The pain is almost completely gone, but still some in the low back and into the right lower extremity occasionally. The patient reports that it twinges and it is only on and off in intensity, very infrequent. The patient has been doing much better, increased her activity, distance walking, doing household activities, work activities, traveling with greater ease and comfort. The patient reports that the pain is aching, pain is tight in the low back and occasionally in the right lower extremity, with the leg that is doing much better. The patient reports it is a 1 on a scale of 10 at its worst over the past week, 0 on an average, 0 at its least and is a 0 today. The patient reports no new motor or sensory deficits, no new bowel or bladder incontinence. The right leg is doing much better. Again, with walking, she did have occasional twinges still, but almost completely pain-free. PHYSICAL EXAMINATION: VITAL SIGNS: The patient's blood pressure 139/67, pulse 60, respirations 18, temperature 97.8 degrees Fahrenheit, height is 5 feet 6-1/2 inches, weight is 298 pounds. GENERAL: The patient is awake, alert, oriented, appropriate, very pleasant demeanor. HEENT: Shows normocephalic, atraumatic. The patient is wearing eyeglasses. Extraocular movements are intact and symmetrical. Oral cavity: Mucous membranes moist and pink; dentition is intact. NECK: Shows anterior throat supple without palpable lymphadenopathy noted. Swallow reflex symmetrical. CHEST: Shows normal on inspection. Breath sounds are clear bilaterally. HEART: Shows S1, S2 clear. ABDOMEN: Soft, nontender, nondistended. BACK: Shows spine grossly in the midline. Normal-appearing cervical lordotic curvature, thoracic kyphotic curvature and lumbar lordotic curvature. Lumbar paraspinous muscle shows symmetrical on inspection, with palpation shows some moderate tenderness, but only diffusely in the low lumbar distribution and only very minimally without radiation. The patient has good rotational motion of lumbar spine both laterally as well as extension and flexion without significant increase in pain and some mild pain with forward flexion only. EXTREMITIES: The patient's lower extremities show deep tendon reflexes are 1+ in the patellar and tendo-calcaneus tendons. Motor exam is 5/5 with dorsiflexion, extension, quadriceps and hamstring flexion, symmetrical. Peripheral pulses are 1+ posterior tibial. No peripheral edema bilaterally. Options were discussed with the patient. The patient's old chart was reviewed as her current medication regimen updated. Current review of systems updated today as well. We will proceed with a second lumbar epidural steroid injection today with fluoroscopic guidance. Risks were again discussed including, but not limited to bleeding, infection, possibility of epidural hematoma, subsequent neurological compromise, dural puncture, headaches, spinal cord and/or nerve damage, side effects of steroid medication and poor results regarding pain control. The patient understands and wished to proceed. The patient will return to clinic in approximately 2 weeks for followup, was counseled as to the return appointment, activity level and side effects to be aware of. DIAGNOSIS: Lumbar radiculopathy with lumbar degenerative disk disease and lumbar spondylosis. PROCEDURE: Lumbar epidural steroid injection, translaminar approach, at the L4-L5 level, using C-arm fluoroscopic guidance under sterile prep and drape using local anesthetic. MEDICATIONS INJECTED: A total of 120 mg Depo-Medrol plus 10 mL of preservative-free normal saline and 2 mL of contrast. CONDITION AT DISCHARGE: Stable. The patient tolerated the procedure well, had no complications. STEPHEN DE LEON MD DR: RENZO/michael JOB#: [id number] / [id number]
== END ==
LOC: PNCL 08:07
PROVIDERS: ATTEND Anesthesiology
DX: M51.16 Intervertebral disc disorders with radiculopathy, lumbar region (principal); M47.816 Spondylosis without myelopathy or radiculopathy, lumbar region
CPT/HCPCS: 62323; J1030; J1040; Q9965

== ENCOUNTER → 2020-01-02 | Outpatient (CLI) | payer MEDICARE, OTHER ==
[~2020-01-02] MED LIST changes: -CALC600T4 PO; +CALC600T6 PO; +CALC667T4 PO; -CETI10TA24 PO; +CETI10TA74 PO; -IOHEXOL 180 MG/ML 10 ML VIAL. ONE; -OXYC-411 PO; +OXYC1TAB20 PO; -methylPREDNISolone ACETATE 40 MG/ML VIAL. ONE; -methylPREDNISolone ACETATE 80 MG/ML VIAL. ONE
== END | disposition home or self-care (01) ==
LOC: LAB 13:59
PROVIDERS: ATTEND Orthopaedic Surgery
DX: Z01.812 Encounter for preprocedural laboratory examination (principal); M65.341 Trigger finger, right ring finger; Z20.828 Contact with and (suspected) exposure to other viral communicable diseases
CPT/HCPCS: U0003-CS

== ENCOUNTER 2020-01-06 09:39 | Day surgery (SDC) | payer MEDICARE, OTHER ==
[~2020-01-06 09:39] MED LIST changes: +IV RINGERS,LACTATED 1000ML 1,000 ML IV SCH; +LIDOCAINE 1% PF 2 ML VIAL. ID PRN; +ONDANSETRON PF 4 MG/2 ML VIAL. IV PRN; +PROCHLORPERAZINE 10 MG/2 ML VIAL. IV PRN; +ceFAZolin SODIUM 3 GM in IV DEXTROSE 5% 100ML 100 ML IV PRN; +fentaNYL PF VIAL 100 MCG/2 ML VIAL IV PRN
[2020-01-06] MEDS ORDERED: MIDAZOLAM HCL/PF 2 MG/2 ML VIAL. ONE (09:47)
[2020-01-06] MEDS ORDERED: LIDOCAINE 1% Multi-Dose 20 ML VIAL. ONE (09:53)
[2020-01-06] MEDS ORDERED: BUPIVACAINE-EPI 0.5%-1:200000 MPF 30 ML VIAL. ONE (10:09)
[2020-01-06] MEDS ORDERED: methylPREDNISolone ACETATE 80 MG/ML VIAL. ONE (10:09)
[2020-01-06] MEDS ORDERED: OXYC-325 PO (10:28)
--- NOTE | 2020-01-06 10:29 | DISCH ---
DISCHARGE INSTRUCTIONS Condition on Discharge Condition on Discharge: Stable Activity After Discharge Activity Instructions for Disc: Other, see below (Avoid hard grasping for 3 weeks postoperatively) Bathing Instructions: Shower-keep dressing dry Lifting Instructions after Dis: No heavy lifting, No pulling or pushing Driving Instructions after Dis: Do not drive Weight Bearing Status after Di: Non weight bearing Diet after Discharge Diet after Discharge: Regular Diet Texture: Regular Wound Incision Care Wound/Incision Care: Ice to area for comfort, Change dressing (May remove dressing in 3 days may then shower, no soaking) Contacting the after DC Call your doctor for: Concerns you may have Follow-Up Follow up with: Dr. Mike 10 days Treatment/Equipment after DC Adaptive Equipment Issued: None ROMEL MIKE MD Jan 06, 2020 10:29
[2020-01-06] MEDS ORDERED: PROPOFOL 10 MG/ML (20ML) VIAL. IV ONE ×2 (10:47→10:53)
[2020-01-06] MEDS ORDERED: LIDOCAINE 2% PF 5 ML VIAL. ONE (10:47)
[2020-01-06] MEDS ORDERED: DEXAMETHASONE SOD PHOS 4 MG/ML VIAL ONE (10:48)
[2020-01-06] MEDS ORDERED: ONDANSETRON PF 4 MG/2 ML VIAL. ONE (10:48)
[2020-01-06] MEDS ORDERED: fentaNYL PF VIAL 100 MCG/2 ML VIAL ONE ×2 (10:48→12:23)
[2020-01-06] MEDS ORDERED: SEVOFLURANE 16 TO 30 MINUTES. IH ONE (11:14)
[2020-01-06] MEDS ORDERED: oxyCODONE/APAP 5/325 1 TAB TABLET PO ONE (11:45)
[2020-01-06 12:35] VITALS: BP 120/58
--- NOTE | 2020-01-06 16:34 | PDOC4 ---
Operative Note Operative Note Date of surgery: 01/06/2020 Preoperative diagnosis: Right ring trigger finger and acromioclavicular joint arthritis/pain Postoperative diagnosis: Same Operative procedure: Right ring trigger finger release and injection right acromioclavicular joint Surgeon: Cee Architectural Project Manager: René nichols Anesthesia: General Estimated blood loss: 3 cc Complications: None Operative indications: Patient has had recurrence following injection and other nonoperative treatment of a right ring trigger finger and also recurrence of acromioclavicular joint pain with previous relief from injection. We had gone over operative risks and benefits of trigger finger release possibility of nerve or blood vessel damage continued pain infection medical or other anesthetic complications among others and she wished to proceed with surgery as well as injection of the acromioclavicular joint while she was under anesthesia. Operative text: Patient was identified procedure verified patient placed in the supine position on the operating table. After adequate amounts of general anesthesia were administered right upper extremity was prepped and draped in standard sterile fashion with an upper arm tourniquet. After timeout was performed patient procedure identified and verified an incision was made at the distal palmar crease overlying the right ring flexor tendon tendon was isolated neurovascular bundles protected and the tendon sheath was incised and fluid return of normal tendon fluid experienced noting the irritation. The A1 jose was released and flexor profundus and superficialis were noted to be intact and triggering was eliminated. Closure accomplished with nylon suture sterile dressings were applied and the right acromioclavicular joint was injected under sterile conditions with 1 cc 80 mg/mL Depo-Medrol. She was returned to recovery room in stable condition having tolerated procedure well. René nichols was present for the procedure and assisted in patient positioning prepping draping retraction closure and dressings ROMEL SCHMIDT MD Jan 06, 2020 16:34
== END 2020-01-06 13:05 | disposition home or self-care (01) ==
LOC: SURG 09:39
PROVIDERS: ATTEND Orthopaedic Surgery
DX: M65.341 Trigger finger, right ring finger (principal); M19.011 Primary osteoarthritis, right shoulder; Z88.5 Allergy status to narcotic agent; Z88.8 Allergy status to other drugs, medicaments and biological substances; Z79.899 Other long term (current) drug therapy
CPT/HCPCS: 20605; 26055; A7015; J1040; J1100; J2250; J2405; J2704; J3010; J3490